=== PATIENT | male | born 1940 | race Caucasian/White ===

== ENCOUNTER 2024-04-09 15:30 | Outpatient (RCR) | payer MEDICARE, SELFPAY ==
[2024-03-31 09:13] VITALS: BP 165/83; PULSE 68; RESP 18; TEMP 36.3; BMI 25.1
--- NOTE | 2024-03-31 10:52 | HP.PCM_ITS ---
HPI - General General Date of Admission: 03/31/24 HPI Narrative ELSA ALANIZ, is a 84 M who presents for bilateral chronic leg swelling, left greater than right. Patient referred by Dr. Alan Coleman. Patient being treated by Dr. Coleman with dry sterile dressing changes Jalil bandages and Keflex left lower extremity cellulitis. Patient presents today with chronic ulcerations to bilateral lower extremity. Patient reports he sleeps sitting up in a recliner. Patient denies any constitutional symptoms. Patient notes pain with manipulation of the wound sites. Patient denies any chest pain calf pain shortness of breath at current. Patient has no other complaints. Patient has multiple complex medical comorbidities including but not limited to heart disease. [facility] Home Medications ?Medication ?Instructions ?Recorded ?Last Taken ?Type aspirin 81 mg capsule 81 mg PO DAILY 03/31/24 Unknown History furosemide 20 mg tablet 20 mg PO DAILY 03/31/24 Unknown History furosemide 40 mg tablet 40 mg PO DAILY 03/31/24 Unknown History hydralazine 50 mg tablet 50 mg PO Q8 03/31/24 Unknown History magnesium oxide 400 mg (241.3 mg 400 mg PO QWEEK 03/31/24 Unknown History magnesium) tablet metoprolol tartrate 25 mg tablet 25 mg PO Q12.TCU 03/31/24 Unknown History mirtazapine 7.5 mg tablet 7.5 mg PO QHS 03/31/24 Unknown History pantoprazole 40 mg tablet,delayed 40 mg PO DAILY 03/31/24 Unknown History release simvastatin 20 mg tablet 20 mg PO QHS 03/31/24 Unknown History Allergy/AdvReac Type Severity Reaction Status Date / Time No Known Allergies Allergy Verified 03/31/24 10:07 Social History Smoking Status: Light Smoker (<10/day) ROS Constitutional Constitutional: Denies fatigue, fever(s) or weight loss Eyes Eyes: Denies change in eye color, exophthalmos or nystagmus ENT HEENT: Denies dysphagia, ear discharge or mouth pain Cardiovascular Cardiovascular: Denies bluish discoloration of hand/feet, dyspnea at rest or dyspnea on exertion Respiratory/Chest Respiratory/Chest: Denies difficulty clearing secretions, nail bed cyanosis or shortness of breath at rest Gastrointestinal Gastrointestinal: Denies chewing difficulty, coffee ground emesis or hematochezia Vital Signs Vital Signs Vital Signs: 03/31/24 09:13 Temperature 97.3 F L Temperature Source Temporal Pulse Rate 68 Respiratory Rate 18 Blood Pressure 165/83 H Blood Pressure Mean 110 Blood Pressure Source Monitor Blood Pressure Position Sitting Blood Pressure Location Left Forearm Oxygen Delivery Method Room Air Weight Weight: 71.668 kg Body Mass Index (BMI) 25.1 Physical Exam Narrative Vascular: Dorsalis pedis posterior tibial pulses palpable 2 out of 4 to bilateral lower extremity. Atrophic skin changes noted bilaterally. +1 pitting edema right lower extremity. +2 pitting edema left lower extremity. Focal increase in warmth and erythema noted to left lower extremity diffusely. Neurologic: Light touch protective sensation intact bilateral feet. No evidence of clonus or Babinski sign today. Dermatologic: Full-thickness wound to the dorsal right foot, full-thickness wound to the dorsal left foot, full-thickness wound to anterior lateral leg. These wounds demonstrate periwound maceration moderate serous drainage. Left leg wound demonstrates periwound erythema edema and warmth. No other signs of infection deep probing or undermining noted. Musculoskeletal: No pain with calf squeeze bilaterally. Muscular strength full to bilateral lower extremity compartment. No gross musculoskeletal deformity causing wound formation. Assessment & Plan Assessment/Plan (1) Cellulitis of left lower limb: PLAN: Exam performed. Patient on p.o. Keflex. Wounds to bilateral lower extremity were debrided including the right foot, left foot, left lateral leg down to and including level of subcutaneous tissue. All nonviable tissue was removed via excisional debridement. This was performed with a 5 mm millimeter dermal curette. Pre and postdebridement measurements documented nursing notes. Topical anesthesia was used. Patient tolerated procedure well. Hemostasis obtained with light compression. Wound flushed with copious amounts normal sterile saline swab cultures taken. Arterial studies ordered Venous studies ordered Plan for Betadine paint to periwound edges along with silver alginate to the wound sites overlying dry sterile dressing and Jalil wrap's wrap from the base of the toes to the widest portion of the calf. This dressing will change will be performed by the patient's daughter every third day. Will consider advanced wound care products including EpiFix versus additional application of multilayer compression wrap once arterial and venous studies have been obtained. At current I am recommending completion of p.o. antibiotics, will consider changing antibiotics per culture and sensitivity results. Follow-up in 1 week. (2) Non-pressure chronic ulcer of other part of right foot with fat layer exposed: (3) Non-pressure chronic ulcer of other part of left foot with fat layer exposed: (4) Non-pressure chronic ulcer of left calf with fat layer exposed:
--- NOTE | 2024-04-02 09:38 | WC ---
PHOTO 03/31/24 RIGHT DORSAL FOOT(I)
--- NOTE | 2024-04-02 09:44 | WC ---
PHOTO 03/31/24 RIGHT 2ND TOE (I)
--- NOTE | 2024-04-02 09:47 | WC ---
PHOTO 03/31/24 RIGHT POST LE(I)
--- NOTE | 2024-04-02 09:52 | WC ---
PHOTO 03/31/24 LEFT 3RD TOE(I)
--- NOTE | 2024-04-02 09:55 | WC ---
PHOTO 03/31/24 LEFT DORSAL FOOT
--- NOTE | 2024-04-02 09:58 | WC ---
PHOTO 03/31/24 LEFT LATERAL LE
--- NOTE | 2024-04-02 10:01 | WC ---
PHOTO 03/31/24 LEFT POST LE(I)
[2024-04-07 09:07] VITALS: BP 158/60; PULSE 73; RESP 18; TEMP 36.3; BMI 25.1
--- NOTE | 2024-04-07 09:58 | PCM.WC.PN ---
History of Present Illness Date of Service: 04/07/24 Objective Data Objective Data Vital Signs: Vital Signs Temp Pulse Resp BP O2 Del Method 97.3 F L 73 18 158/60 H Room Air 04/07/24 09:07 04/07/24 09:07 04/07/24 09:07 04/07/24 09:07 04/07/24 09:07 Oxygen Delivery Method Room Air Weight: 71.668 kg Body Mass Index (BMI) 25.1 Lab / Micro Data Micro: Microbiology 03/31/24 16:53 Ulcer, Decubitus - Leg, Left Gram Stain - Final 03/31/24 16:53 Ulcer, Decubitus - Leg, Left Wound Culture - Final Pseudomonas aeruginosa Enterococcus faecalis Staphylococcus epidermidis Serratia fonticola 03/31/24 16:53 Ulcer, Decubitus - Leg, Left Anaerobic Culture - Final No anaerobic bacteria isolated. Physical Exam Narrative Vascular: Dorsalis pedis posterior tibial pulses palpable 2 out of 4 to bilateral lower extremity. Atrophic skin changes noted bilaterally. +1 pitting edema right lower extremity. +2 pitting edema left lower extremity. Focal increase in warmth and erythema noted to left lower extremity diffusely. Neurologic: Light touch protective sensation intact bilateral feet. No evidence of clonus or Babinski sign today. Dermatologic: Full-thickness wound to the dorsal right foot, full-thickness wound to the dorsal left foot, full-thickness wound to anterior lateral leg. These wounds demonstrate periwound maceration moderate serous drainage. Left leg wound demonstrates periwound erythema edema and warmth. No other signs of infection deep probing or undermining noted. Musculoskeletal: No pain with calf squeeze bilaterally. Muscular strength full to bilateral lower extremity compartment. No gross musculoskeletal deformity causing wound formation. Debridement Note Debridement Note Post-Debridement Measurements and Additional Note: Post-Debridement Measurements/Treatment - Nurse 1 - General Ulcer Assessment Start: 03/31/24 09:13 Freq: Status: Active Protocol: DOMINGA Activity Type Activity Date Activity User E-sign Co-sign Detail Recorded Client Recorded Date Recorded By Document 03/31/24 09:13 KW [id number] 03/31/24 10:07 KW Document 04/07/24 09:07 KW [id number] 04/07/24 09:34 KW 03/31/24 04/07/24 09:13 09:07 - Today's Visit Information Type of service Initial Visit Follow-up Visit (Physician/GYROSCOPIC INSTRUMENT TESTER ) Arrival Mode Ambulatory,Cane Ambulatory,Cane Accompanied by DAUGHTER sister Patient Identification Verified (Name & Yes Yes ) Height and Weight Height 5 ft 6.5 in Weight 71.668 kg Weight in Pounds 158.0 lbs Weight Measurement Method Estimated by Patient Body Mass Index (BMI) 25.1 25.1 BMI Classification Overweight Overweight BSA - Yudi 1.82 Vital Signs Temperature (97.8 F-99.1 F) 97.3 F L 97.3 F L Temperature Source Temporal Temporal Pulse Rate (60-100) 68 73 Pulse Location Monitor Monitor Respiratory Rate (12-18) 18 18 Respiratory rate source Observation Observation Oxygen Delivery Method Room Air Room Air Blood Pressure (90/60-120/80) 165/83 H 158/60 H Blood Pressure Mean (mm Hg) 110 92 Source Monitor Monitor Position Sitting Semi-Fowlers Blood Pressure Location Left Forearm Left Forearm History Since Last Visit- (Skip if this is Patient's initial visit) Have you changed medications since your No last visit? Any new allergies or adverse reactions No Had a fall/change in ADL's that may No increase risk of falls Signs or symptoms of abuse and/or No neglect since last visit Have you been in the hospital since your No last visit? Has dressing in place as prescribed Yes Has compression in place as prescribed Yes Has offloadiing in place as prescribed N/A Experienced any changes in pain level or No management Left Footwear No Footwear No Footwear Right Footwear No Footwear No Footwear Pain Scale: 0-10 Numeric Is Patient Pain Free? No Yes LT LAT LE -Description Sharp -Intensity 4 -Alleviating Factors/Interventions Medication, Inactivity/ Resting Communication Assessment Preferred language [place] Multi Slide Machine Tender Required No Able to Read Yes Able to Write Yes Communication Tools None Caregiver Communication Skills No Impairment Impairment Right Hearing Abillity Normal Left Hearing Abillity Normal Visual Assistive Devices None Teaching Assessment Preferences Verbal Readiness To Learn Excellent Willingness to Engage in Self Management High Activies Readiness to Engage in Self Management High Activities Anxiety Level Calm Cooperation Cooperative Perception Coherent Interest in Health Problem Asks Questions Education Importance Acknowledges Need Does Patient Smoke tobacco or other Yes substances Smoking Status Light Smoker (< 10/day) Is Patient Diabetic Yes Functional Assessment Recent Decline in Ability to Perform Denies Any Declines Culture/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 Tennis Ball Coverer Hand to contact place of oriental orthodox No WC - Nurse 1 - General Ulcer Measurement Start: 03/31/24 09:13 Freq: Status: Active Protocol: Activity Type Activity Date Activity User E-sign Co-sign Detail Recorded Client Recorded Date Recorded By Document 03/31/24 09:13 KW [id number] 03/31/24 10:07 KW Document 04/07/24 09:07 KW [id number] 04/07/24 09:34 KW 03/31/24 04/07/24 09:13 09:07 Wound Center Nurse 1 #7 LT POST LE -Current Size (cm) - Length 11 -Current Size (cm) - Width 7 -Current Size (cm) - Depth 0.1 -Total Square Cm 77 -Date of Last Picture (Recall this 03/31/24 field) -Exudate Amt Large -Exudate Type Yellow/Green -Wound Margin Distinct, Outline Attached -Granulation Amt Large (67-100%) -Granulation Quality Red -Necrosis Amt Small (1-33%) -Necrotic Tissue Type Adherent Slough -Texture (Ana-wound Skin Appearance) Assessed -Moisture (Ana-wound Skin Appearance) Assessed, Maceration, Weeping -Color (Ana-wound Skin Appearance) Erythema -Temperature (Ana-wound Skin No Abnormality Appearance) (Pt Warm) -Tenderness on Palpation (Ana-wound Yes Skin Appearance) -Ulcer Cleansing Soap and Water -Foul Odor after Cleansing No -Anesthetic Used 4% Lidocaine Solution #4 LT 3RD TOE-MED -Current Size (cm) - Length 0.1 -Current Size (cm) - Width 0.1 -Current Size (cm) - Depth 0.1 -Total Square Cm 0.01 -Date of Last Picture (Recall this 03/31/24 field) -Exudate Amt Small -Exudate Type Serosanguineous -Wound Margin Distinct, Outline Attached -Granulation Amt Large (67-100%) -Granulation Quality [place] -Necrosis Amt Large (67-100%) -Necrotic Tissue Type Adherent Slough -Texture (Ana-wound Skin Appearance) Assessed -Moisture (Ana-wound Skin Appearance) Maceration -Color (Ana-wound Skin Appearance) Assessed -Temperature (Ana-wound Skin No Abnormality Appearance) (Pt Warm) -Tenderness on Palpation (Ana-wound No Skin Appearance) -Ulcer Cleansing Soap and Water -Foul Odor after Cleansing No -Anesthetic Used 4% Lidocaine Solution #3 RT POST LE -Current Size (cm) - Length 2 -Current Size (cm) - Width 8 -Current Size (cm) - Depth 0.1 -Total Square Cm 16 -Date of Last Picture (Recall this 03/31/24 field) -Exudate Amt Large -Exudate Type Yellow/Green -Wound Margin Distinct, Outline Attached -Granulation Amt Large (67-100%) -Granulation Quality Red -Necrosis Amt Small (1-33%) -Necrotic Tissue Type Adherent Slough -Texture (Ana-wound Skin Appearance) Assessed -Moisture (Ana-wound Skin Appearance) Maceration, Weeping -Color (Ana-wound Skin Appearance) Erythema -Temperature (Ana-wound Skin No Abnormality Appearance) (Pt Warm) -Tenderness on Palpation (Ana-wound No Skin Appearance) -Ulcer Cleansing Soap and Water -Foul Odor after Cleansing No -Anesthetic Used 4% Lidocaine Solution #2 RT 2ND TOE -Current Size (cm) - Length 0.6 -Current Size (cm) - Width 1 -Current Size (cm) - Depth 0.1 -Total Square Cm 0.6 -Date of Last Picture (Recall this 03/31/24 field) -Exudate Amt Small -Exudate Type Serosanguineous -Wound Margin Distinct, Outline Attached -Granulation Amt Large (67-100%) -Granulation Quality Red -Necrosis Amt Small (1-33%) -Necrotic Tissue Type Adherent Slough -Texture (Ana-wound Skin Appearance) Assessed -Moisture (Ana-wound Skin Appearance) Maceration -Color (Ana-wound Skin Appearance) Erythema -Temperature (Ana-wound Skin No Abnormality Appearance) (Pt Warm) -Tenderness on Palpation (Ana-wound No Skin Appearance) -Ulcer Cleansing Soap and Water -Anesthetic Used 4% Lidocaine Solution #6 LT LAT LE cluster -Current Size (cm) - Length 21 24.5 -Current Size (cm) - Width 9 24 -Current Size (cm) - Depth 0.1 0.1 -Total Square Cm 189 588.0 -Date of Last Picture (Recall this 03/31/24 field) -Exudate Amt Large Large -Exudate Type Yellow/Green Yellow/Green -Wound Margin Distinct, Distinct, Outline Outline Attached Attached -Granulation Amt Large (67-100%) Large (67-100%) -Granulation Quality Red Red -Necrosis Amt Small (1-33%) Medium (34-66%) -Necrotic Tissue Type Adherent Slough Adherent Slough -Texture (Ana-wound Skin Appearance) Assessed, Assessed Localized Edema -Moisture (Ana-wound Skin Appearance) Maceration, Assessed, Weeping Maceration, Weeping -Color (Ana-wound Skin Appearance) Assessed, Assessed, Erythema Erythema -Temperature (Ana-wound Skin No Abnormality No Abnormality Appearance) (Pt Warm) (Pt Warm) -Tenderness on Palpation (Ana-wound Yes No Skin Appearance) -Ulcer Cleansing Soap and Water Soap and Water -Foul Odor after Cleansing No No -Anesthetic Used 4% Lidocaine 4% Lidocaine Solution Solution #5 LT DORSAL FT -Current Size (cm) - Length 5 -Current Size (cm) - Width 7 -Current Size (cm) - Depth 0.1 -Total Square Cm 35 -Date of Last Picture (Recall this 03/31/24 field) -Exudate Amt Large Large -Exudate Type Yellow/Green Yellow/Green -Wound Margin Distinct, Distinct, Outline Outline Attached Attached -Granulation Amt Large (67-100%) Large (67-100%) -Granulation Quality Red Red -Necrosis Amt Small (1-33%) Small (1-33%) -Necrotic Tissue Type Adherent Slough Adherent Slough -Texture (Ana-wound Skin Appearance) Assessed, Assessed Localized Edema -Moisture (Ana-wound Skin Appearance) Maceration Assessed, Maceration, Weeping -Color (Ana-wound Skin Appearance) Assessed, Assessed, Erythema Erythema -Temperature (Ana-wound Skin No Abnormality No Abnormality Appearance) (Pt Warm) (Pt Warm) -Tenderness on Palpation (Ana-wound No No Skin Appearance) -Ulcer Cleansing Soap and Water Soap and Water -Foul Odor after Cleansing No No -Anesthetic Used 4% Lidocaine 4% Lidocaine Solution Solution #1 RT DORSAL FT -Current Size (cm) - Length 5 5 -Current Size (cm) - Width 4.3 5 -Current Size (cm) - Depth 0.1 0.1 -Total Square Cm 21.5 25 -Date of Last Picture (Recall this 03/31/24 field) -Exudate Amt Large Large -Exudate Type Yellow/Green Serosanguineous -Wound Margin Distinct, Distinct, Outline Outline Attached Attached -Granulation Amt Large (67-100%) Large (67-100%) -Granulation Quality Red Red -Necrosis Amt Small (1-33%) Small (1-33%) -Necrotic Tissue Type Adherent Slough Adherent Slough -Texture (Ana-wound Skin Appearance) Localized Edema Assessed -Moisture (Ana-wound Skin Appearance) Maceration,Dry/ Assessed, Scaly Maceration, Weeping -Color (Ana-wound Skin Appearance) Erythema Assessed, Erythema -Temperature (Ana-wound Skin No Abnormality No Abnormality Appearance) (Pt Warm) (Pt Warm) -Tenderness on Palpation (Ana-wound No No Skin Appearance) -Ulcer Cleansing Soap and Water Soap and Water -Foul Odor after Cleansing No No -Anesthetic Used 4% Lidocaine 4% Lidocaine Solution Solution Right Calf (cm) 34 Right Ankle (cm) 22.5 Left Calf (cm) 36 Left Ankle (cm) 23 WC - Nurse 2 - General Ulcer CM Notes Start: 03/31/24 09:13 Freq: Status: Active Protocol: Activity Type Activity Date Activity User E-sign Co-sign Detail Recorded Client Recorded Date Recorded By Document 03/31/24 10:41 [id number] 03/31/24 10:45 Document 04/07/24 09:48 [id number] 04/07/24 09:55 03/31/24 04/07/24 10:41 09:48 Wound Center Nurse 2 #6 LT LAT LE cluster -Time 10:41 09:49 -Correct Patient Yes Yes -Correct Side, Site, Position Yes Yes -Correct Procedure Yes Yes -Procedure Performed Yes Yes -Type of Procedure Debridement Debridement -Clinical Debridement Subcutaneous Subcutaneous -Tissue Removed Subcutaneous Subcutaneous -Post Debridement (cm) - Length 18 18 -Post Debridement (cm) - Width 6.5 6.6 -Post Debridement (cm) - Depth 0.1 0.1 -Total Square (Post) (cm) 117.0 118.8 -Area of Debridement (cm) - Length 18.0 18 -Area of Debridement (cm) - Width 6.5 6.6 -Total Square (Area) (cm) 117.00 118.8 -Tunneling No No -Undermining/Tunneling No No -Circular Undermining No No -Wound/Ulcer Outcome Not Healed Not Healed -Ulcer Cleansing Rinsed/ Wound Cleanser Irrigated with Saline -Foul Odor after Cleansing No No -Bioengineered Tissue No No -Bleeding Controlled with Pressure Pressure -Treatment Response Procedure Procedure Tolerated Well Tolerated Well -Offloading No No -Debridement - Subq, 1st 20sq cm No No #5 LT DORSAL FT -Time 10:42 09:51 -Correct Patient Yes Yes -Correct Side, Site, Position Yes Yes -Correct Procedure Yes Yes -Procedure Performed Yes Yes -Type of Procedure Debridement Debridement -Clinical Debridement Subcutaneous Subcutaneous -Tissue Removed Subcutaneous Subcutaneous -Post Debridement (cm) - Length 4.0 4 -Post Debridement (cm) - Width 3.5 3.6 -Post Debridement (cm) - Depth 0.1 0.1 -Total Square (Post) (cm) 14.00 14.4 -Area of Debridement (cm) - Length 4.0 4 -Area of Debridement (cm) - Width 3.5 3.6 -Total Square (Area) (cm) 14.00 14.4 -Tunneling No No -Undermining/Tunneling No No -Circular Undermining No No -Wound/Ulcer Outcome Not Healed Not Healed -Ulcer Cleansing Rinsed/ Rinsed/ Irrigated with Irrigated with Saline Saline -Foul Odor after Cleansing No No -Bioengineered Tissue No No -Bleeding Controlled with Pressure Pressure -Treatment Response Procedure Procedure Tolerated Well Tolerated Well -Offloading No No -Debridement - Subq, 1st 20sq cm Yes No -Debridement, SubQ, ea addt'l 20sq cm 7 or part thereof #1 RT DORSAL FT -Time 10:43 09:52 -Correct Patient Yes Yes -Correct Side, Site, Position Yes Yes -Correct Procedure Yes Yes -Procedure Performed Yes Yes -Type of Procedure Debridement Debridement -Clinical Debridement Subcutaneous Subcutaneous -Tissue Removed Subcutaneous Subcutaneous -Post Debridement (cm) - Length 5.5 5.5 -Post Debridement (cm) - Width 3.5 3.6 -Post Debridement (cm) - Depth 0.1 0.1 -Total Square (Post) (cm) 19.25 19.80 -Area of Debridement (cm) - Length 5.5 5.5 -Area of Debridement (cm) - Width 3.5 3.6 -Total Square (Area) (cm) 19.25 19.80 -Tunneling No No -Undermining/Tunneling No No -Circular Undermining No No -Wound/Ulcer Outcome Not Healed Not Healed -Ulcer Cleansing Rinsed/ Irrigated with Saline -Foul Odor after Cleansing No No -Bioengineered Tissue No No -Bleeding Controlled with Pressure Pressure -Treatment Response Procedure Procedure Tolerated Well Tolerated Well -Offloading No No -Debridement - Subq, 1st 20sq cm No Yes -Debridement, SubQ, ea addt'l 20sq cm 7 or part thereof Pain Scale: 0-10 Numeric Is Patient Pain Free? Yes Yes - Nurse 3 - General Ulcer D/C NN Start: 03/31/24 09:13 Freq: Status: Active Protocol: Activity Type Activity Date Activity User E-sign Co-sign Detail Recorded Client Recorded Date Recorded By Document 03/31/24 10:58 [id number] 03/31/24 11:01 03/31/24 10:58 Wound Care Center Nurse 3 #6 LT LAT LE cluster -Ulcer Cleansing betadine to edges of wounds -Primary Dressing Applied Silvercel -Other Dressing ABD -Primary Dressing Covered/Secured with Dry Gauze,Dry Gauze & Roll Gauze -Silvercel 3 #5 LT DORSAL FT -Ulcer Cleansing betadine -Other Dressing silvercel -Primary Dressing Covered/Secured with Dry Gauze,Dry Gauze & Roll Gauze,Secured with Tape -Other Covering ABD #1 RT DORSAL FT -Ulcer Cleansing betadine -Other Dressing silvercel -Primary Dressing Covered/Secured with Dry Gauze,Dry Gauze & Roll Gauze bilat LE -Other lee Treatment Response Procedure Tolerated Well Pain Scale: 0-10 Numeric Is Patient Pain Free? Yes - Visit Discharge Discharge Condition Stable Ambulatory Status Wheelchair Transportation Private Auto Medication Reconcilliation completed & No provided to patient/care provider Clinical Summary of Care Provided Yes Assessment/Plan Assessment/Plan (1) Cellulitis of left lower limb: CODE(S): L03.116 - Cellulitis of left lower limb PLAN: Exam performed. Wound cultures reviewed with patient. Patient has positive cultures for Pseudomonas aeruginosa, Enterococcus faecalis, Serratia species, Staph epidermidis. Rx for Augmentin and levofloxacin ordered. Wounds to bilateral lower extremity were debrided including the right foot, left foot, left lateral leg down to and including level of subcutaneous tissue. All nonviable tissue was removed via excisional debridement. This was performed with a misonix hydrodebrider. Pre and postdebridement measurements documented nursing notes. Topical anesthesia was used. Patient tolerated procedure well. Hemostasis obtained with light compression. Wound flushed with copious amounts normal sterile saline swab cultures taken. Arterial studies ordered -awaiting study results Venous studies ordered -awaiting study result Plan for Betadine paint to wounds diffusely to bilateral legs with overlying silver alginate and Adaptic followed by 3M compression wraps with a nursing dressing change on prior to follow-up visit next week. Will consider advanced wound care products including EpiFix versus additional application of multilayer compression wrap once arterial and venous studies have been obtained. At current I am recommending completion of p.o. antibiotics, will consider changing antibiotics per culture and sensitivity results. Follow-up in 1 week. (2) Non-pressure chronic ulcer of other part of right foot with fat layer exposed: CODE(S): L97.512 - Non-pressure chronic ulcer of other part of right foot with fat layer exposed (3) Non-pressure chronic ulcer of other part of left foot with fat layer exposed: CODE(S): L97.522 - Non-pressure chronic ulcer of other part of left foot with fat layer exposed (4) Non-pressure chronic ulcer of left calf with fat layer exposed: CODE(S): L97.222 - Non-pressure chronic ulcer of left calf with fat layer exposed
--- NOTE | 2024-04-09 13:04 | VDLE_ITS ---
Version 2 Reason For Study: Bilateral leg edema RIGHT LEFT CFV is compressible, spontaneous, phasic, CFV is compressible, spontaneous, phasic, competent and demonstrates normal competent, and demonstrates normal augmentation. augmentation. FV is compressible, spontaneous, phasic, FV is compressible, spontaneous, phasic, competent and demonstrates normal competent and demonstrates normal augmentation. augmentation. POP V is compressible, spontaneous, phasic, POP V is compressible, spontaneous, phasic, competent and demonstrates normal competent and demonstrates normal augmentation. augmentation. T/P Trunk is compressible. T/P Trunk is compressible. PTV is compressible. PTV is compressible. RT PerV is compressible. LT PerV is compressible. SFJ is competent and measures 0.53 cm. SFJ is competent and measures 0.58 cm. GSV previously harvest above knee. GSV proximal thigh measures 0.55 x 0.57 cm. GSV prox calf measures 0.18 x 0.21 cm. GSV above knee is competent. GSV below knee is INCOMPETENT for greater GSV at knee measures 0.51 x 0.52 cm. than 0.5 seconds. GSV below knee is INCOMPETENT for greater ASV proximal calf is INCOMPETENT for greater than 0.5 seconds. than 0.5 seconds and measures 0.16 x 0.17 cm. ASV at knee is INCOMPETENT for greater than SSV proximal calf is competent and measures 0.5 seconds and measures 0.48 x 0.55 cm. 0.30 x 0.35 cm. SSV proximal calf is competent and measures Procedure 0.13 x 0.14 cm. This is a venous duplex using B-mode, color flow and spectral Doppler. Exam performed in department. Patient was scanned in reverse Trendelenburg position during reflux assessment. A preliminary report was called and/or faxed to [facility]. Calf veins not well visualized at distal calf due to bandages and wounds. VL/Venous Duplex US - Roney Extrem Interpretation Summary Deep veins of the lower extremities are bilaterally patent and compressible seg mentally. There is no evidence of deep vein thrombosis on either side. Valvular competence appears in tact within the proximal deep venous systems bilaterally. Sapheno-femoral junctions are bilater ally competent . The right great saphenous vein has been previously harvested above the knee. The ri ght great saphenous vein appears incompetent below the knee. The left great saphenous vein appears competent above the knee. The left great saphenous vein appears incompetent below the knee. Small s aphenous veins are patent and competent bilaterally. The accessory saphenous vein in the right pro ximal calf is incompetent. The accessory saphenous vein at knee level on the left is incompet ent. Deep veins of the distal calf were not well visualized on either side due to the presence of wounds and bandages. Ordering Physician: Grady Reyez Referring Physician: Alan Coleman Performed By: Donna Conteh RVT
--- NOTE | 2024-04-09 13:04 | ART_ITS ---
Reason For Study: Wound Procedure A bilateral lower extremity continuous wave Doppler with analog waveform analysis,segmental pressures,and ankle brachial indexes without exercise. Left Segmental Pressures Left brachial= 148mmHg. Left posterior tibial artery = 181mmHg. Left dorsalis pedis artery = 179mmHg. Left digit = 82 mmHg. The left dorsalis pedis waveforms are biphasic. The left posterior tibial artery waveforms are biphasic. Right Segmental Pressures Right brachial= 143mmHg. Right posterior tibial artery = 169mmHg. Right dorsalis pedis artery = 161mmHg. Right digit = 101 mmHg. The right dorsalis pedis waveforms are triphasic. The right posterior tibial artery waveforms are biphasic. Indices The right ankle brachial index by the dorsalis pedis is 1.09. The right ankle brachial index by the posterior tibial artery is 1.14. The right digital-brachial index is 0.68. The left ankle brachial index by the dorsalis pedis is 1.21. The left ankle brachial index by the posterior tibial artery is 1.22. The left digital-brachial index is 0.55. VL/Lower Ext Art Exam w/o Exercis Interpretation Summary Biphasic and triphasic Doppler waveforms are noted at ankle level on the right. Biphasic Doppler waveforms are noted at ankle level on the left. Pulse-volume recordings appear satisfactory at all levels bilaterally. Resting ankle-brachial indices are normal bilaterally. Digi sujit-brachial indices are mildly diminished bilaterally. Arterial flow appears normal at ankle level bilaterally. There is evidence of m ild arterial occlusive disease at digital level bilaterally. Ordering Physician: Grady Reyez Referring Physician: Alan Coleman Performed By: Donna Conteh RVT
[2024-04-09 15:46] VITALS: BP 150/90; PULSE 91; RESP 18; TEMP 36; BMI 25.1
== END 2024-04-11 23:59 | disposition home or self-care (01) ==
LOC: WC 15:30
PROVIDERS: PCP Family Medicine; Referring Provider Family Medicine; Visit Provider Podiatrist
DX: L03.116 Cellulitis of left lower limb (principal); L97.512 Non-pressure chronic ulcer of other part of right foot with fat layer exposed; L97.522 Non-pressure chronic ulcer of other part of left foot with fat layer exposed; L97.222 Non-pressure chronic ulcer of left calf with fat layer exposed; F17.200 Nicotine dependence, unspecified, uncomplicated; Z79.82 Long term (current) use of aspirin
CPT/HCPCS: 11042; 11045; 29581; 87070; 87075; 87077; 87186; 87205; 93923; 93970; 99204; G0463

== ENCOUNTER 2024-05-05 08:45 | Outpatient (RCR) | payer MEDICARE, SELFPAY ==
[2024-04-12 00:34] VITALS: BP 150/90; PULSE 91; RESP 18; TEMP 36; BMI 25.1
[2024-04-14 09:05] VITALS: BP 163/66; PULSE 70; RESP 18; TEMP 36.8; BMI 25.1
[2024-04-21 09:06] VITALS: BP 158/66; PULSE 70; RESP 18; TEMP 36.9; BMI 25.1
[2024-04-23 11:29] VITALS: BP 177/77; PULSE 68; RESP 16; TEMP 36.4; BMI 25.1
[2024-04-28 09:53] VITALS: BP 183/65; PULSE 68; RESP 18; TEMP 36.6; BMI 25.1
[2024-05-01 11:37] VITALS: BMI 25.1
[2024-05-05 08:50] VITALS: BP 159/68; PULSE 67; RESP 20; TEMP 37; BMI 25.1
== END 2024-05-11 23:59 | disposition home or self-care (01) ==
LOC: WC 08:45
PROVIDERS: PCP Family Medicine; Referring Provider Family Medicine; Visit Provider Podiatrist
DX: L03.116 Cellulitis of left lower limb (principal); L97.512 Non-pressure chronic ulcer of other part of right foot with fat layer exposed; L97.522 Non-pressure chronic ulcer of other part of left foot with fat layer exposed; L97.222 Non-pressure chronic ulcer of left calf with fat layer exposed
CPT/HCPCS: 11042; 11045; 29580; 29581; 99212; 99214; G0463

== ENCOUNTER → 2024-05-21 | Outpatient (CLI) | payer MEDICARE, SELFPAY | END | disposition home or self-care (01) | LOC: LABSPEC 15:05 | PROVIDERS: PCP Family Medicine; Visit Provider Podiatrist | DX: Z00.00 Encounter for general adult medical examination without abnormal findings (principal) ==

== ENCOUNTER 2024-06-09 09:45 | Outpatient (RCR) | payer MEDICARE, SELFPAY ==
[2024-05-12 00:39] VITALS: BP 150/90; PULSE 91; RESP 18; TEMP 36; BMI 25.1
[2024-05-12 09:55] VITALS: BP 145/77; PULSE 60; RESP 18; TEMP 36.3; BMI 25.1
--- NOTE | 2024-05-12 10:54 | PCM.WC.PN ---
History of Present Illness Date of Service: 05/05/24 Progress of Wound: Patient presents follow-up bilateral leg wounds. Patient notes significant improvement. Denies any chest pain calf pain shortness of breath. Patient compliant with treatment. We are having issues with requiring home health care. Objective Data Objective Data Vital Signs: Vital Signs Temp Pulse Resp BP 97.3 F L 60 18 145/77 H 05/12/24 09:55 05/12/24 09:55 05/12/24 09:55 05/12/24 09:55 Weight: 71.668 kg Body Mass Index (BMI) 25.1 Physical Exam Narrative Vascular: Dorsalis pedis posterior tibial pulses palpable 2 out of 4 to bilateral lower extremity. Atrophic skin changes noted bilaterally. +1 pitting edema right lower extremity. +2 pitting edema left lower extremity. Focal increase in warmth and erythema noted to left lower extremity diffusely. Neurologic: Light touch protective sensation intact bilateral feet. No evidence of clonus or Babinski sign today. Dermatologic: Full-thickness wound to the dorsal right foot, full-thickness wound to the dorsal left foot, full-thickness wound to anterior lateral leg. These wounds demonstrate improved periwound maceration moderate serous drainage. Left leg wound demonstrates improved periwound erythema edema and warmth. No other signs of infection deep probing or undermining noted. Musculoskeletal: No pain with calf squeeze bilaterally. Muscular strength full to bilateral lower extremity compartment. No gross musculoskeletal deformity causing wound formation. 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 ) Arrival Mode Ambulatory,Cane Transfer Assistance Manual Patient Identification Verified (Name & Yes ) Patient Requires Transmission-Based No Precautions Height and Weight Body Mass Index (BMI) 25.1 BMI Classification Overweight Vital Signs Temperature (97.8 F-99.1 F) 97.3 F L Temperature Source Temporal Pulse Rate (60-100) 60 Pulse Location Monitor Respiratory Rate (12-18) 18 Respiratory rate source Observation Blood Pressure (90/60-120/80) 145/77 H Blood Pressure Mean (mm Hg) 99 Source Monitor Position Semi-Fowlers Blood Pressure Location Left Arm History Since Last Visit- (Skip if this is Patient's initial visit) Have you changed medications since your Yes last visit? Any new allergies or adverse reactions No Had a fall/change in ADL's that may No increase risk of falls Signs or symptoms of abuse and/or No neglect since last visit Have you been in the hospital since your No last visit? Has dressing in place as prescribed Yes Has compression in place as prescribed Yes Has offloadiing in place as prescribed No Experienced any changes in pain level or No management Pain Scale: 0-10 Numeric Is Patient Pain Free? Yes WC - Nurse 1 - General Ulcer Measurement Start: 05/12/24 09:55 Freq: Status: Active Protocol: Activity Type Activity Date Activity User E-sign Co-sign Detail Recorded Client Recorded Date Recorded By Document 05/12/24 09:55 RB [id number] 05/12/24 10:21 RB 05/12/24 09:55 Wound Center Nurse 1 #6 LT leg posterior -Combined with other wound No -Current Size (cm) - Length 15 -Current Size (cm) - Width 19 -Current Size (cm) - Depth 0.1 -Total Square Cm 285 -Photo Taken Yes -Tunneling No -Undermining/Tunneling No -Circular Undermining No -Exudate Amt Large -Exudate Type Serosanguineous -Wound Margin Distinct, Outline Attached -Granulation Amt Large (67-100%) -Granulation Quality [place],Red -Slough/Fibrin Yes -Necrosis Amt Small (1-33%) -Necrotic Tissue Type Adherent Slough -Structure Exposed N/A -Texture (Ana-wound Skin Appearance) Assessed -Moisture (Ana-wound Skin Appearance) Assessed, Maceration -Color (Ana-wound Skin Appearance) Assessed -Temperature (Ana-wound Skin No Abnormality Appearance) (Pt Warm) -Tenderness on Palpation (Ana-wound No Skin Appearance) -Ulcer Cleansing Wound Cleanser -Foul Odor after Cleansing No #5 LT DORSAL FT -Combined with other wound No -Current Size (cm) - Length 0.1 -Current Size (cm) - Width 0.1 -Current Size (cm) - Depth 0.1 -Total Square Cm 0.01 -Photo Taken Yes -Tunneling No -Undermining/Tunneling No -Circular Undermining No -Exudate Amt Large -Exudate Type Yellow/Green -Wound Margin Distinct, Outline Attached -Granulation Amt Large (67-100%) -Granulation Quality [place],Red -Slough/Fibrin Yes -Necrosis Amt Medium (34-66%) -Necrotic Tissue Type Adherent Slough -Structure Exposed N/A -Texture (Ana-wound Skin Appearance) Assessed -Moisture (Ana-wound Skin Appearance) Maceration -Color (Ana-wound Skin Appearance) Assessed -Temperature (Ana-wound Skin No Abnormality Appearance) (Pt Warm) -Tenderness on Palpation (Ana-wound No Skin Appearance) -Ulcer Cleansing Wound Cleanser -Foul Odor after Cleansing Yes #3 RT POST LE -Combined with other wound No -Current Size (cm) - Length 0.1 -Current Size (cm) - Width 0.1 -Current Size (cm) - Depth 0.1 -Total Square Cm 0.01 -Photo Taken Yes -Tunneling No -Undermining/Tunneling No -Circular Undermining No -Exudate Amt Large -Exudate Type Serosanguineous -Wound Margin Distinct, Outline Attached -Granulation Amt Medium (34-66%) -Granulation Quality [place] -Slough/Fibrin Yes -Necrosis Amt Medium (34-66%) -Necrotic Tissue Type Adherent Slough -Structure Exposed N/A -Texture (Ana-wound Skin Appearance) Assessed -Moisture (Ana-wound Skin Appearance) Assessed -Color (Ana-wound Skin Appearance) Assessed -Temperature (Ana-wound Skin No Abnormality Appearance) (Pt Warm) -Tenderness on Palpation (Ana-wound No Skin Appearance) -Ulcer Cleansing Wound Cleanser -Foul Odor after Cleansing No #1 RT DORSAL FT -Combined with other wound No -Current Size (cm) - Length 0.1 -Current Size (cm) - Width 0.1 -Current Size (cm) - Depth 0.1 -Total Square Cm 0.01 -Tunneling No -Undermining/Tunneling No -Circular Undermining No -Exudate Amt Large -Exudate Type Serosanguineous -Wound Margin Distinct, Outline Attached -Granulation Amt Medium (34-66%) -Granulation Quality [place] -Slough/Fibrin Yes -Necrosis Amt Medium (34-66%) -Necrotic Tissue Type Adherent Slough -Structure Exposed N/A -Texture (Ana-wound Skin Appearance) Assessed -Moisture (Ana-wound Skin Appearance) Assessed -Color (Ana-wound Skin Appearance) Assessed -Temperature (Ana-wound Skin No Abnormality Appearance) (Pt Warm) -Tenderness on Palpation (Ana-wound No Skin Appearance) -Ulcer Cleansing Wound Cleanser -Foul Odor after Cleansing No Lower Limb Edema Present Yes Right Calf (cm) 33 Right Ankle (cm) 22 Left Calf (cm) 34 Left Ankle (cm) 23 WC - Nurse 2 - General Ulcer CM Notes Start: 05/12/24 09:55 Freq: Status: Active Protocol: Activity Type Activity Date Activity User E-sign Co-sign Detail Recorded Client Recorded Date Recorded By Document 05/12/24 10:19 ESTHER [id number] 05/12/24 10:20 ESTHER 05/12/24 10:19 Wound Center Nurse 2 #6 LT leg posterior -Correct Patient No -Correct Side, Site, Position No -Correct Procedure No -Procedure Performed No -Wound/Ulcer Outcome Not Healed #5 LT DORSAL FT -Correct Patient No -Correct Side, Site, Position No -Correct Procedure No -Procedure Performed No -Wound/Ulcer Outcome Not Healed #3 RT POST LE -Correct Patient No -Correct Side, Site, Position No -Correct Procedure No -Procedure Performed No -Wound/Ulcer Outcome Not Healed -Treatment Response Procedure Tolerated Well #1 RT DORSAL FT -Correct Patient No -Correct Side, Site, Position No -Correct Procedure No -Procedure Performed No -Wound/Ulcer Outcome Not Healed Pain Scale: 0-10 Numeric Is Patient Pain Free? Yes - Nurse 3 - General Ulcer D/C NN Start: 05/12/24 09:55 Freq: Status: Active Protocol: Activity Type Activity Date Activity User E-sign Co-sign Detail Recorded Client Recorded Date Recorded By Document 05/12/24 10:52 RB [id number] 05/12/24 10:54 RB 05/12/24 10:52 Wound Care Center Nurse 3 #6 LT leg posterior -Ulcer Cleansing Wound Cleanser -Primary Dressing Applied Optilok 8x12, [place] -Optilok 8x12 1 -[place] 2 #5 LT DORSAL FT -Ulcer Cleansing Wound Cleanser -Primary Dressing Applied Optilok 6.5x10, Silvercel -Optilok 6.5x10 1 -[place] 1 Right -Tubular Bandage Double Layer -Size of Tubigrip Used Size D -Size D ($) 2 Left -Multi-Layered Wrap Application Multi-Layer Comp - Left ($) Treatment Response Procedure Tolerated Well Pain Scale: 0-10 Numeric Is Patient Pain Free? Yes WC - Visit Discharge Discharge Condition Stable Ambulatory Status Ambulatory,Cane Transportation Private Auto Medication Reconcilliation completed & No provided to patient/care provider Clinical Summary of Care Provided Yes Assessment/Plan Assessment/Plan (1) Cellulitis of left lower limb: CODE(S): L03.116 - Cellulitis of left lower limb PLAN: Exam performed. Cellulitis resolved. Significant improvement wounds to bilateral lower extremity. Continue Betadine dry sterile gauze to left interspaces 1 through 4. Right foot wounds healed. Will apply double Tubigrip right lower extremity. Plan for silver alginate dry sterile dressing and 3M compression wrap left lower extremity. No debridement performed today. Refer to vascular surgery for some venous incompetence noted on venous study. Patient additionally has some right artery mild arterial occlusive disease which was reviewed with patient. Continue compression exercise and elevation for edema management. Follow-up in 1 week. (2) Non-pressure chronic ulcer of other part of right foot with fat layer exposed: CODE(S): L97.512 - Non-pressure chronic ulcer of other part of right foot with fat layer exposed (3) Non-pressure chronic ulcer of other part of left foot with fat layer exposed: CODE(S): L97.522 - Non-pressure chronic ulcer of other part of left foot with fat layer exposed (4) Non-pressure chronic ulcer of left calf with fat layer exposed: CODE(S): L97.222 - Non-pressure chronic ulcer of left calf with fat layer exposed
--- NOTE | 2024-05-13 11:47 | WC ---
PHOTO LEFT DORSAL FOOT 05/12/24
--- NOTE | 2024-05-13 11:48 | WC ---
PHOTO RIGHT DORSAL FOOT 05/12/24
--- NOTE | 2024-05-13 11:49 | WC ---
PHOTO 05/12/24
--- NOTE | 2024-05-13 11:50 | WC ---
PHOTO LLE POST 05/12/24
[2024-05-21 10:08] VITALS: BP 149/77; PULSE 74; RESP 18; TEMP 36.1; BMI 25.1
--- NOTE | 2024-05-21 10:48 | PCM.WC.PN ---
History of Present Illness Date of Service: 05/21/24 Progress of Wound: Patient presents follow-up bilateral leg wounds. Patient notes significant improvement. Denies any chest pain calf pain shortness of breath. Patient compliant with treatment. We are having issues with requiring home health care. Objective Data Objective Data Vital Signs: Vital Signs Temp Pulse Resp BP 97 F L 74 18 149/77 H 05/21/24 10:08 05/21/24 10:08 05/21/24 10:08 05/21/24 10:08 Weight: 71.668 kg Body Mass Index (BMI) 25.1 Physical Exam Narrative Vascular: Dorsalis pedis posterior tibial pulses palpable 2 out of 4 to bilateral lower extremity. Atrophic skin changes noted bilaterally. +1 pitting edema right lower extremity. +2 pitting edema left lower extremity. Focal increase in warmth and erythema noted to left lower extremity diffusely. Neurologic: Light touch protective sensation intact bilateral feet. No evidence of clonus or Babinski sign today. Dermatologic: Healed wounds right foot and leg. Left leg wounds healed. Dorsal left foot ulceration noted full-thickness with moderate serous draining and drainage, malodor, maceration extending into the interdigital spaces. Musculoskeletal: No pain with calf squeeze bilaterally. Muscular strength full to bilateral lower extremity compartment. No gross musculoskeletal deformity causing wound formation. Debridement Note Debridement Note Post-Debridement Measurements and Additional Note: Post-Debridement Measurements/Treatment - Nurse 1 - General Ulcer Assessment Start: 05/12/24 09:55 Freq: Status: Active Protocol: .LOWEXT Activity Type Activity Date Activity User E-sign Co-sign Detail Recorded Client Recorded Date Recorded By Document 05/12/24 09:55 RB [id number] 05/12/24 10:21 RB Document 05/21/24 10:08 RB [id number] 05/21/24 10:33 RB 05/12/24 05/21/24 09:55 10:08 - Today's Visit Information Type of service Follow-up Visit Follow-up Visit (Physician/OFFLINE CUTTER (Physician/OFFLINE CUTTER ) ) Arrival Mode Ambulatory,Cane Ambulatory,Cane Transfer Assistance Manual None Patient Identification Verified (Name & Yes Yes ) Patient Requires Transmission-Based No No Precautions Height and Weight Body Mass Index (BMI) 25.1 25.1 BMI Classification Overweight Overweight Vital Signs Temperature (97.8 F-99.1 F) 97.3 F L 97 F L Temperature Source Temporal Temporal Pulse Rate (60-100) 60 74 Pulse Location Monitor Monitor Respiratory Rate (12-18) 18 18 Respiratory rate source Observation Observation Blood Pressure (90/60-120/80) 145/77 H 149/77 H Blood Pressure Mean (mm Hg) 99 101 Source Monitor Monitor Position Semi-Fowlers Semi-Fowlers Blood Pressure Location Left Arm Left Arm History Since Last Visit- (Skip if this is Patient's initial visit) Have you changed medications since your Yes No last visit? Any new allergies or adverse reactions No No Had a fall/change in ADL's that may No No increase risk of falls Signs or symptoms of abuse and/or No No neglect since last visit Have you been in the hospital since your No No last visit? Has dressing in place as prescribed Yes Yes Has compression in place as prescribed Yes Yes Has offloadiing in place as prescribed No No Experienced any changes in pain level or No No management Pain Scale: 0-10 Numeric Is Patient Pain Free? Yes Yes WC - Nurse 1 - General Ulcer Measurement Start: 05/12/24 09:55 Freq: Status: Active Protocol: Activity Type Activity Date Activity User E-sign Co-sign Detail Recorded Client Recorded Date Recorded By Document 05/12/24 09:55 RB [id number] 05/12/24 10:21 RB Document 05/21/24 10:08 RB [id number] 05/21/24 10:33 RB 05/12/24 05/21/24 09:55 10:08 Wound Center Nurse 1 #6 LT leg posterior -Combined with other wound No No -Current Size (cm) - Length 15 0.1 -Current Size (cm) - Width 19 0.1 -Current Size (cm) - Depth 0.1 0.1 -Total Square Cm 285 0.01 -Photo Taken Yes Yes -Tunneling No No -Undermining/Tunneling No No -Circular Undermining No No -Exudate Amt Large Large -Exudate Type Serosanguineous Serosanguineous -Wound Margin Distinct, Distinct, Outline Outline Attached Attached -Granulation Amt Large (67-100%) Large (67-100%) -Granulation Quality [place],Red [place],Red -Slough/Fibrin Yes Yes -Necrosis Amt Small (1-33%) Small (1-33%) -Necrotic Tissue Type Adherent Slough Adherent Slough -Structure Exposed N/A N/A -Texture (Ana-wound Skin Appearance) Assessed Assessed -Moisture (Ana-wound Skin Appearance) Assessed, Weeping,Dry/ Maceration Scaly -Color (Ana-wound Skin Appearance) Assessed Assessed -Temperature (Ana-wound Skin No Abnormality No Abnormality Appearance) (Pt Warm) (Pt Warm) -Tenderness on Palpation (Ana-wound No No Skin Appearance) -Ulcer Cleansing Wound Cleanser Wound Cleanser -Foul Odor after Cleansing No No -Anesthetic Used 5% Lidocaine Gel #5 LT DORSAL FT -Combined with other wound No No -Current Size (cm) - Length 0.1 10 -Current Size (cm) - Width 0.1 12 -Current Size (cm) - Depth 0.1 0.1 -Total Square Cm 0.01 120 -Photo Taken Yes Yes -Tunneling No No -Undermining/Tunneling No No -Circular Undermining No No -Exudate Amt Large Large -Exudate Type Yellow/Green Serosanguineous -Wound Margin Distinct, Distinct, Outline Outline Attached Attached -Granulation Amt Large (67-100%) Large (67-100%) -Granulation Quality [place],Red [place],Red -Slough/Fibrin Yes Yes -Necrosis Amt Medium (34-66%) Medium (34-66%) -Necrotic Tissue Type Adherent Slough Adherent Slough -Structure Exposed N/A N/A -Texture (Ana-wound Skin Appearance) Assessed Assessed -Moisture (Ana-wound Skin Appearance) Maceration Weeping,Dry/ Scaly -Color (Ana-wound Skin Appearance) Assessed Erythema -Temperature (Ana-wound Skin No Abnormality No Abnormality Appearance) (Pt Warm) (Pt Warm) -Tenderness on Palpation (Ana-wound No No Skin Appearance) -Ulcer Cleansing Wound Cleanser Wound Cleanser -Foul Odor after Cleansing Yes No -Anesthetic Used 5% Lidocaine Gel #3 RT POST LE -Combined with other wound No No -Current Size (cm) - Length 0.1 0 -Current Size (cm) - Width 0.1 0 -Current Size (cm) - Depth 0.1 0 -Total Square Cm 0.01 0 -Photo Taken Yes Yes -Epithelialization Large 67-100% -Tunneling No -Undermining/Tunneling No -Circular Undermining No -Exudate Amt Large -Exudate Type Serosanguineous -Wound Margin Distinct, Outline Attached -Granulation Amt Medium (34-66%) -Granulation Quality [place] -Slough/Fibrin Yes -Necrosis Amt Medium (34-66%) -Necrotic Tissue Type Adherent Slough -Structure Exposed N/A -Texture (Ana-wound Skin Appearance) Assessed -Moisture (Ana-wound Skin Appearance) Assessed -Color (Ana-wound Skin Appearance) Assessed -Temperature (Ana-wound Skin No Abnormality Appearance) (Pt Warm) -Tenderness on Palpation (Ana-wound No Skin Appearance) -Ulcer Cleansing Wound Cleanser -Foul Odor after Cleansing No #1 RT DORSAL FT -Combined with other wound No No -Current Size (cm) - Length 0.1 0 -Current Size (cm) - Width 0.1 0 -Current Size (cm) - Depth 0.1 0 -Total Square Cm 0.01 0 -Photo Taken Yes -Epithelialization Large 67-100% -Tunneling No -Undermining/Tunneling No -Circular Undermining No -Exudate Amt Large -Exudate Type Serosanguineous -Wound Margin Distinct, Outline Attached -Granulation Amt Medium (34-66%) -Granulation Quality [place] -Slough/Fibrin Yes -Necrosis Amt Medium (34-66%) -Necrotic Tissue Type Adherent Slough -Structure Exposed N/A -Texture (Ana-wound Skin Appearance) Assessed -Moisture (Ana-wound Skin Appearance) Assessed -Color (Ana-wound Skin Appearance) Assessed -Temperature (Ana-wound Skin No Abnormality Appearance) (Pt Warm) -Tenderness on Palpation (Ana-wound No Skin Appearance) -Ulcer Cleansing Wound Cleanser -Foul Odor after Cleansing No Lower Limb Edema Present Yes Yes Right Calf (cm) 33 32.5 Right Ankle (cm) 22 22.7 Left Calf (cm) 34 32.5 Left Ankle (cm) 23 22.5 WC - Nurse 2 - General Ulcer CM Notes Start: 05/12/24 09:55 Freq: Status: Active Protocol: Activity Type Activity Date Activity User E-sign Co-sign Detail Recorded Client Recorded Date Recorded By Document 05/12/24 10:19 ESTHER [id number] 05/12/24 10:20 ESTHER 05/12/24 10:19 Wound Center Nurse 2 #6 LT leg posterior -Correct Patient No -Correct Side, Site, Position No -Correct Procedure No -Procedure Performed No -Wound/Ulcer Outcome Not Healed #5 LT DORSAL FT -Correct Patient No -Correct Side, Site, Position No -Correct Procedure No -Procedure Performed No -Wound/Ulcer Outcome Not Healed #3 RT POST LE -Correct Patient No -Correct Side, Site, Position No -Correct Procedure No -Procedure Performed No -Wound/Ulcer Outcome Not Healed -Treatment Response Procedure Tolerated Well #1 RT DORSAL FT -Correct Patient No -Correct Side, Site, Position No -Correct Procedure No -Procedure Performed No -Wound/Ulcer Outcome Not Healed Pain Scale: 0-10 Numeric Is Patient Pain Free? Yes - Nurse 3 - General Ulcer D/C NN Start: 05/12/24 09:55 Freq: Status: Active Protocol: Activity Type Activity Date Activity User E-sign Co-sign Detail Recorded Client Recorded Date Recorded By Document 05/12/24 10:52 RB [id number] 05/12/24 10:54 RB 05/12/24 10:52 Wound Care Center Nurse 3 #6 LT leg posterior -Ulcer Cleansing Wound Cleanser -Primary Dressing Applied Optilok 8x12, [place] -Optilok 8x12 1 -[place] 2 #5 LT DORSAL FT -Ulcer Cleansing Wound Cleanser -Primary Dressing Applied Optilok 6.5x10, [place] -Optilok 6.5x10 1 -[place] 1 Right -Tubular Bandage Double Layer -Size of Tubigrip Used Size D -Size D ($) 2 Left -Multi-Layered Wrap Application Multi-Layer Comp - Left ($) Treatment Response Procedure Tolerated Well Pain Scale: 0-10 Numeric Is Patient Pain Free? Yes - Visit Discharge Discharge Condition Stable Ambulatory Status Ambulatory,Cane Transportation Private Auto Medication Reconcilliation completed & No provided to patient/care provider Clinical Summary of Care Provided Yes Assessment/Plan Assessment/Plan (1) Cellulitis of left lower limb: CODE(S): L03.116 - Cellulitis of left lower limb PLAN: Exam performed. Cellulitis recurrent on the left. Wound cultures taken. Rx for Augmentin and ciprofloxacin. No debridement performed today. Plan for daily Betadine gauze to the interspaces dorsal left foot ulceration will be dressed with silver alginate dry sterile dressing and overlying double Tubigrip dressing. Recommend continue elevation left lower extremity. Patient is awaiting vascular evaluation in 1 month. Follow-up weekly. (2) Non-pressure chronic ulcer of other part of right foot with fat layer exposed: CODE(S): L97.512 - Non-pressure chronic ulcer of other part of right foot with fat layer exposed (3) Non-pressure chronic ulcer of other part of left foot with fat layer exposed: CODE(S): L97.522 - Non-pressure chronic ulcer of other part of left foot with fat layer exposed (4) Non-pressure chronic ulcer of left calf with fat layer exposed: CODE(S): L97.222 - Non-pressure chronic ulcer of left calf with fat layer exposed
--- NOTE | 2024-05-22 12:07 | WC ---
PHOTO 05/21/24 LEFT DORSAL FOOT
--- NOTE | 2024-05-22 12:07 | WC ---
PHOTO RIGHT DORSAL FOOT 05/21/24
--- NOTE | 2024-05-22 12:08 | WC ---
PHOTO RIGHT POST LE 05/21/24
--- NOTE | 2024-05-22 12:09 | WC ---
PHOTO 05/21/24 LEFT POST LE
--- NOTE | 2024-05-25 11:16 | WC ---
PHOTO 05/21/24 LEFT DORSAL FOOT
--- NOTE | 2024-05-25 11:17 | WC ---
PHOTO 05/21/24 RIGHT DORSAL FOOT
--- NOTE | 2024-05-25 11:18 | WC ---
PHOTO 05/21/24 RIGHT POST LE
--- NOTE | 2024-05-25 11:19 | WC ---
PHOTO 05/21/24 LEFT POST LE
[2024-05-26 09:44] VITALS: BP 173/59; PULSE 63; RESP 18; TEMP 36.4; BMI 25.1
--- NOTE | 2024-05-26 10:14 | PN.PCM_ITS ---
History of Present Illness Date of Service: 05/26/24 Progress of Wound: Patient presents follow-up bilateral leg wounds. Patient notes significant improvement. Denies any chest pain calf pain shortness of breath. Patient compliant with treatment. We are having issues with requiring home health care. Objective Data Objective Data Vital Signs: Vital Signs Temp Pulse Resp BP O2 Del Method 97.6 F L 63 18 173/59 H Room Air 05/26/24 09:44 05/26/24 09:44 05/26/24 09:44 05/26/24 09:44 05/26/24 09:44 Oxygen Delivery Method Room Air Weight: 71.668 kg Body Mass Index (BMI) 25.1 Lab / Micro Data Micro: Microbiology 05/21/24 10:40 Wound - Left Foot Gram Stain - Final 05/21/24 10:40 Wound - Left Foot Wound Culture - Final Pseudomonas aeruginosa 05/21/24 10:40 Wound - Left Foot Anaerobic Culture - Final No anaerobic bacteria isolated. Physical Exam Narrative Vascular: Dorsalis pedis posterior tibial pulses palpable 2 out of 4 to bilateral lower extremity. Atrophic skin changes noted bilaterally. +1 pitting edema right lower extremity. +2 pitting edema left lower extremity. Focal increase in warmth and erythema noted to left lower extremity diffusely. Neurologic: Light touch protective sensation intact bilateral feet. No evidence of clonus or Babinski sign today. Dermatologic: Healed wounds right foot and leg. Left leg wounds healed. Dorsal left foot ulceration noted full-thickness with moderate serous draining and drainage, malodor, maceration extending into the interdigital spaces - noted to be improved today. Musculoskeletal: No pain with calf squeeze bilaterally. Muscular strength full to bilateral lower extremity compartment. No gross musculoskeletal deformity causing wound formation. Debridement Note Debridement Note Post-Debridement Measurements and Additional Note: Post-Debridement Measurements/Treatment BC - Nurse 1 - General Ulcer Assessment Start: 05/12/24 09:55 Freq: Status: Active Protocol: DOMINGA Activity Type Activity Date Activity User E-sign Co-sign Detail Recorded Client Recorded Date Recorded By Document 05/12/24 09:55 RB [id number] 05/12/24 10:21 RB Document 05/21/24 10:08 RB [id number] 05/21/24 10:33 RB Document 05/26/24 09:44 KW [id number] 05/26/24 09:58 KW 05/12/24 05/21/24 05/26/24 09:55 10:08 09:44 - Today's Visit Information Type of service Follow-up Visit Follow-up Visit Follow-up Visit (Physician/MARKETING PLANNING MANAGER (Physician/MARKETING PLANNING MANAGER (Physician/MARKETING PLANNING MANAGER ) ) ) Arrival Mode Ambulatory,Cane Ambulatory,Cane Ambulatory,Cane Transfer Assistance Manual None Accompanied by caregiver Patient Identification Verified (Name & Yes Yes Yes ) Patient Requires Transmission-Based No No Precautions Height and Weight Body Mass Index (BMI) 25.1 25.1 25.1 BMI Classification Overweight Overweight Overweight Vital Signs Temperature (97.8 F-99.1 F) 97.3 F L 97 F L 97.6 F L Temperature Source Temporal Temporal Temporal Pulse Rate (60-100) 60 74 63 Pulse Location Monitor Monitor Monitor Respiratory Rate (12-18) 18 18 18 Respiratory rate source Observation Observation Observation Oxygen Delivery Method Room Air Blood Pressure (90/60-120/80) 145/77 H 149/77 H 173/59 H Blood Pressure Mean (mm Hg) 99 101 97 Source Monitor Monitor Monitor Position Semi-Fowlers Semi-Fowlers Semi-Fowlers Blood Pressure Location Left Arm Left Arm Left Forearm History Since Last Visit- (Skip if this is Patient's initial visit) Have you changed medications since your Yes No No last visit? Any new allergies or adverse reactions No No No Had a fall/change in ADL's that may No No No increase risk of falls Signs or symptoms of abuse and/or No No No neglect since last visit Have you been in the hospital since your No No No last visit? Has dressing in place as prescribed Yes Yes Yes Has compression in place as prescribed Yes Yes Yes Has offloadiing in place as prescribed No No N/A Experienced any changes in pain level or No No No management Left Footwear Slipper Right Footwear Slipper Pain Scale: 0-10 Numeric Is Patient Pain Free? Yes Yes Yes - Nurse 1 - General Ulcer Measurement Start: 05/12/24 09:55 Freq: Status: Active Protocol: Activity Type Activity Date Activity User E-sign Co-sign Detail Recorded Client Recorded Date Recorded By Document 05/12/24 09:55 RB [id number] 05/12/24 10:21 RB Document 05/21/24 10:08 RB [id number] 10/10/24 10:33 RB Document 05/26/24 09:44 KW [id number] 05/26/24 09:58 KW 05/12/24 05/21/24 05/26/24 09:55 10:08 09:44 Wound Center Nurse 1 #3 RT POST LE -Combined with other wound No No -Current Size (cm) - Length 0.1 0 -Current Size (cm) - Width 0.1 0 -Current Size (cm) - Depth 0.1 0 -Total Square Cm 0.01 0 -Photo Taken Yes Yes -Epithelialization Large 67-100% -Tunneling No -Undermining/Tunneling No -Circular Undermining No -Exudate Amt Large -Exudate Type Serosanguineous -Wound Margin Distinct, Outline Attached -Granulation Amt Medium (34-66%) -Granulation Quality [place] -Slough/Fibrin Yes -Necrosis Amt Medium (34-66%) -Necrotic Tissue Type Adherent Slough -Structure Exposed N/A -Texture (Ana-wound Skin Appearance) Assessed -Moisture (Ana-wound Skin Appearance) Assessed -Color (Ana-wound Skin Appearance) Assessed -Temperature (Ana-wound Skin No Abnormality Appearance) (Pt Warm) -Tenderness on Palpation (Ana-wound No Skin Appearance) -Ulcer Cleansing Wound Cleanser -Foul Odor after Cleansing No #1 RT DORSAL FT -Combined with other wound No No -Current Size (cm) - Length 0.1 0 -Current Size (cm) - Width 0.1 0 -Current Size (cm) - Depth 0.1 0 -Total Square Cm 0.01 0 -Photo Taken Yes -Epithelialization Large 67-100% -Tunneling No -Undermining/Tunneling No -Circular Undermining No -Exudate Amt Large -Exudate Type Serosanguineous -Wound Margin Distinct, Outline Attached -Granulation Amt Medium (34-66%) -Granulation Quality [place] -Slough/Fibrin Yes -Necrosis Amt Medium (34-66%) -Necrotic Tissue Type Adherent Slough -Structure Exposed N/A -Texture (Ana-wound Skin Appearance) Assessed -Moisture (Ana-wound Skin Appearance) Assessed -Color (Ana-wound Skin Appearance) Assessed -Temperature (Ana-wound Skin No Abnormality Appearance) (Pt Warm) -Tenderness on Palpation (Ana-wound No Skin Appearance) -Ulcer Cleansing Wound Cleanser -Foul Odor after Cleansing No #6 LT leg posterior -Combined with other wound No No No -Current Size (cm) - Length 15 0.1 0.1 -Current Size (cm) - Width 19 0.1 0.1 -Current Size (cm) - Depth 0.1 0.1 0.1 -Total Square Cm 285 0.01 0.01 -Photo Taken Yes Yes -Tunneling No No No -Undermining/Tunneling No No No -Circular Undermining No No No -Exudate Amt Large Large Small -Exudate Type Serosanguineous Serosanguineous Serosanguineous -Wound Margin Distinct, Distinct, Distinct, Outline Outline Outline Attached Attached Attached -Granulation Amt Large (67-100%) Large (67-100%) Large (67-100%) -Granulation Quality [place],Red [place]Red [place] -Slough/Fibrin Yes Yes Yes -Necrosis Amt Small (1-33%) Small (1-33%) Small (1-33%) -Necrotic Tissue Type Adherent Slough Adherent Slough Adherent Slough -Structure Exposed N/A N/A N/A -Texture (Ana-wound Skin Appearance) Assessed Assessed Assessed -Moisture (Ana-wound Skin Appearance) Assessed, Weeping,Dry/ Dry/Scaly Maceration Scaly -Color (Ana-wound Skin Appearance) Assessed Assessed Assessed -Temperature (Ana-wound Skin No Abnormality No Abnormality No Abnormality Appearance) (Pt Warm) (Pt Warm) (Pt Warm) -Tenderness on Palpation (Ana-wound No No No Skin Appearance) -Ulcer Cleansing Wound Cleanser Wound Cleanser Wound Cleanser -Foul Odor after Cleansing No No No -Anesthetic Used 5% Lidocaine 5% Lidocaine Gel Gel #5 LT DORSAL FT -Combined with other wound No No No -Current Size (cm) - Length 0.1 10 2 -Current Size (cm) - Width 0.1 12 5.5 -Current Size (cm) - Depth 0.1 0.1 0.1 -Total Square Cm 0.01 120 11.0 -Photo Taken Yes Yes -Tunneling No No No -Undermining/Tunneling No No No -Circular Undermining No No No -Exudate Amt Large Large Large -Exudate Type Yellow/Green Serosanguineous Serosanguineous -Wound Margin Distinct, Distinct, Distinct, Outline Outline Outline Attached Attached Attached -Granulation Amt Large (67-100%) Large (67-100%) Large (67-100%) -Granulation Quality [place],Red [place],Red [place] -Slough/Fibrin Yes Yes Yes -Necrosis Amt Medium (34-66%) Medium (34-66%) Small (1-33%) -Necrotic Tissue Type Adherent Slough Adherent Slough Adherent Slough -Structure Exposed N/A N/A N/A -Texture (Ana-wound Skin Appearance) Assessed Assessed Assessed -Moisture (Ana-wound Skin Appearance) Maceration Weeping,Dry/ Assessed Scaly -Color (Ana-wound Skin Appearance) Assessed Erythema Assessed, Erythema -Temperature (Ana-wound Skin No Abnormality No Abnormality No Abnormality Appearance) (Pt Warm) (Pt Warm) (Pt Warm) -Tenderness on Palpation (Ana-wound No No No Skin Appearance) -Ulcer Cleansing Wound Cleanser Wound Cleanser Wound Cleanser -Foul Odor after Cleansing Yes No No -Anesthetic Used 5% Lidocaine 5% Lidocaine Gel Gel Lower Limb Edema Present Yes Yes Yes Right Calf (cm) 33 32.5 34.2 Right Ankle (cm) 22 22.7 22.5 Left Calf (cm) 34 32.5 38.7 Left Ankle (cm) 23 22.5 22 WC - Nurse 2 - General Ulcer CM Notes Start: 05/12/24 09:55 Freq: Status: Active Protocol: Activity Type Activity Date Activity User E-sign Co-sign Detail Recorded Client Recorded Date Recorded By Document 05/12/24 10:19 ESTHER [id number] 05/12/24 10:20 JF Document 05/26/24 10:07 ESTHER [id number] 05/26/24 10:08 ESTHER 05/12/24 05/26/24 10:19 10:07 Wound Center Nurse 2 #3 RT POST LE -Correct Patient No -Correct Side, Site, Position No -Correct Procedure No -Procedure Performed No -Wound/Ulcer Outcome Not Healed -Treatment Response Procedure Tolerated Well #1 RT DORSAL FT -Correct Patient No -Correct Side, Site, Position No -Correct Procedure No -Procedure Performed No -Wound/Ulcer Outcome Not Healed #6 LT leg posterior -Correct Patient No No -Correct Side, Site, Position No No -Correct Procedure No No -Procedure Performed No No -Wound/Ulcer Outcome Not Healed Not Healed #5 LT DORSAL FT -Correct Patient No No -Correct Side, Site, Position No No -Correct Procedure No No -Procedure Performed No No -Wound/Ulcer Outcome Not Healed Not Healed Pain Scale: 0-10 Numeric Is Patient Pain Free? Yes Yes - Nurse 3 - General Ulcer D/C NN Start: 05/12/24 09:55 Freq: Status: Active Protocol: Activity Type Activity Date Activity User E-sign Co-sign Detail Recorded Client Recorded Date Recorded By Document 05/12/24 10:52 RB [id number] 05/12/24 10:54 RB 05/12/24 10:52 Wound Care Center Nurse 3 #6 LT leg posterior -Ulcer Cleansing Wound Cleanser -Primary Dressing Applied Optilok 8x12, [place] -Optilok 8x12 1 -[place] 2 #5 LT DORSAL FT -Ulcer Cleansing Wound Cleanser -Primary Dressing Applied Optilok 6.5x10, [place] -Optilok 6.5x10 1 -[place] 1 Right -Tubular Bandage Double Layer -Size of Tubigrip Used Size D -Size D ($) 2 Left -Multi-Layered Wrap Application Multi-Layer Comp - Left ($) Treatment Response Procedure Tolerated Well Pain Scale: 0-10 Numeric Is Patient Pain Free? Yes WC - Visit Discharge Discharge Condition Stable Ambulatory Status Ambulatory,Cane Transportation Private Auto Medication Reconcilliation completed & No provided to patient/care provider Clinical Summary of Care Provided Yes Assessment/Plan Assessment/Plan (1) Cellulitis of left lower limb: CODE(S): L03.116 - Cellulitis of left lower limb PLAN: Exam performed. improved wound/cellulitis to left dorsal foot C+S reviewed - demonstrates resistant pseuodomonas aeruginosa cellulitis resolved - will hold off ID consult unless there is recurrence Rx for Augmentin and ciprofloxacin - finish out course No debridement performed today. Plan for daily Betadine gauze to the interspaces dorsal left foot ulceration will be dressed with silver alginate dry sterile dressing and overlying double Tubigrip dressing. Recommend continue elevation left lower extremity. Patient is awaiting vascular evaluation in 1 month. Follow-up weekly. (2) Non-pressure chronic ulcer of other part of right foot with fat layer exposed: CODE(S): L97.512 - Non-pressure chronic ulcer of other part of right foot with fat layer exposed (3) Non-pressure chronic ulcer of other part of left foot with fat layer exposed: CODE(S): L97.522 - Non-pressure chronic ulcer of other part of left foot with fat layer exposed (4) Non-pressure chronic ulcer of left calf with fat layer exposed: CODE(S): L97.222 - Non-pressure chronic ulcer of left calf with fat layer exposed
[2024-06-02 09:52] VITALS: BP 159/54; PULSE 62; RESP 18; TEMP 36.7; BMI 25.1
--- NOTE | 2024-06-02 10:49 | PCM.WC.PN ---
History of Present Illness Date of Service: 06/02/24 Progress of Wound: Patient presents follow-up bilateral leg wounds. Patient notes significant improvement. Denies any chest pain calf pain shortness of breath. Patient compliant with treatment. We are having issues with requiring home health care. Objective Data Objective Data Vital Signs: Vital Signs Temp Pulse Resp BP O2 Del Method 98.0 F 62 18 159/54 H Room Air 06/02/24 09:52 06/02/24 09:52 06/02/24 09:52 06/02/24 09:52 06/02/24 09:52 Oxygen Delivery Method Room Air Weight: 71.668 kg Body Mass Index (BMI) 25.1 Lab / Micro Data Micro: Microbiology 05/21/24 10:40 Wound - Left Foot Gram Stain - Final 05/21/24 10:40 Wound - Left Foot Wound Culture - Final Pseudomonas aeruginosa 05/21/24 10:40 Wound - Left Foot Anaerobic Culture - Final No anaerobic bacteria isolated. Physical Exam Narrative Vascular: Dorsalis pedis posterior tibial pulses palpable 2 out of 4 to bilateral lower extremity. Atrophic skin changes noted bilaterally. +1 pitting edema right lower extremity. +2 pitting edema left lower extremity. Focal increase in warmth and erythema noted to left lower extremity diffusely. Neurologic: Light touch protective sensation intact bilateral feet. No evidence of clonus or Babinski sign today. Dermatologic: Healed wounds right foot and leg. Left leg wounds healed. Dorsal left foot ulceration noted full-thickness with moderate serous draining and drainage, malodor, maceration extending into the interdigital spaces - noted to be improved today. Musculoskeletal: No pain with calf squeeze bilaterally. Muscular strength full to bilateral lower extremity compartment. No gross musculoskeletal deformity causing wound formation. Debridement Note Debridement Note Post-Debridement Measurements and Additional Note: Post-Debridement Measurements/Treatment BC - Nurse 1 - General Ulcer Assessment Start: 05/12/24 09:55 Freq: Status: Active Protocol: DOMINGA Activity Type Activity Date Activity User E-sign Co-sign Detail Recorded Client Recorded Date Recorded By Document 05/12/24 09:55 RB [id number] 05/12/24 10:21 RB Document 05/21/24 10:08 RB [id number] 05/21/24 10:33 RB Document 05/26/24 09:44 KW [id number] 10/15/24 09:58 KW Document 06/02/24 09:52 [id number] 06/02/24 10:08 KW 05/12/24 05/21/24 05/26/24 09:55 10:08 09:44 - Today's Visit Information Type of service Follow-up Visit Follow-up Visit Follow-up Visit (Physician/STAFF DEVELOPMENT COORDINATOR (Physician/STAFF DEVELOPMENT COORDINATOR (Physician/STAFF DEVELOPMENT COORDINATOR ) ) ) Arrival Mode Ambulatory,Cane Ambulatory,Cane Ambulatory,Cane Transfer Assistance Manual None Accompanied by caregiver Patient Identification Verified (Name & Yes Yes Yes ) Patient Requires Transmission-Based No No Precautions Height and Weight Body Mass Index (BMI) 25.1 25.1 25.1 BMI Classification Overweight Overweight Overweight Vital Signs Temperature (97.8 F-99.1 F) 97.3 F L 97 F L 97.6 F L Temperature Source Temporal Temporal Temporal Pulse Rate (60-100) 60 74 63 Pulse Location Monitor Monitor Monitor Respiratory Rate (12-18) 18 18 18 Respiratory rate source Observation Observation Observation Oxygen Delivery Method Room Air Blood Pressure (90/60-120/80) 145/77 H 149/77 H 173/59 H Blood Pressure Mean (mm Hg) 99 101 97 Source Monitor Monitor Monitor Position Semi-Fowlers Semi-Fowlers Semi-Fowlers Blood Pressure Location Left Arm Left Arm Left Forearm History Since Last Visit- (Skip if this is Patient's initial visit) Have you changed medications since your Yes No No last visit? Any new allergies or adverse reactions No No No Had a fall/change in ADL's that may No No No increase risk of falls Signs or symptoms of abuse and/or No No No neglect since last visit Have you been in the hospital since your No No No last visit? Has dressing in place as prescribed Yes Yes Yes Has compression in place as prescribed Yes Yes Yes Has offloadiing in place as prescribed No No N/A Experienced any changes in pain level or No No No management Left Footwear Slipper Right Footwear Slipper Pain Scale: 0-10 Numeric Is Patient Pain Free? Yes Yes Yes 06/02/24 09:52 - Today's Visit Information Type of service Follow-up Visit (Physician/STAFF DEVELOPMENT COORDINATOR ) Arrival Mode Transfer Assistance Accompanied by Patient Identification Verified (Name & Yes ) Patient Requires Transmission-Based Precautions Height and Weight Body Mass Index (BMI) 25.1 BMI Classification Overweight Vital Signs Temperature (97.8 F-99.1 F) 98.0 F Temperature Source Temporal Pulse Rate (60-100) 62 Pulse Location Monitor Respiratory Rate (12-18) 18 Respiratory rate source Observation Oxygen Delivery Method Room Air Blood Pressure (90/60-120/80) 159/54 H Blood Pressure Mean (mm Hg) 89 Source Monitor Position Semi-Fowlers Blood Pressure Location Left Arm History Since Last Visit- (Skip if this is Patient's initial visit) Have you changed medications since your No last visit? Any new allergies or adverse reactions No Had a fall/change in ADL's that may No increase risk of falls Signs or symptoms of abuse and/or No neglect since last visit Have you been in the hospital since your No last visit? Has dressing in place as prescribed Yes Has compression in place as prescribed Yes Has offloadiing in place as prescribed N/A Experienced any changes in pain level or No management Left Footwear Regular Shoe Right Footwear Regular Shoe Pain Scale: 0-10 Numeric Is Patient Pain Free? Yes WC - Nurse 1 - General Ulcer Measurement Start: 05/12/24 09:55 Freq: Status: Active Protocol: Activity Type Activity Date Activity User E-sign Co-sign Detail Recorded Client Recorded Date Recorded By Document 05/12/24 09:55 RB [id number] 05/12/24 10:21 RB Document 05/21/24 10:08 RB [id number] 05/21/24 10:33 RB Document 05/26/24 09:44 KW [id number] 05/26/24 09:58 KW Document 06/02/24 09:52 KW [id number] 06/02/24 10:08 KW 05/12/24 05/21/24 05/26/24 09:55 10:08 09:44 Wound Center Nurse 1 #6 LT leg posterior -Combined with other wound No No No -Current Size (cm) - Length 15 0.1 0.1 -Current Size (cm) - Width 19 0.1 0.1 -Current Size (cm) - Depth 0.1 0.1 0.1 -Total Square Cm 285 0.01 0.01 -Date of Last Picture (Recall this field) -Photo Taken Yes Yes -Tunneling No No No -Undermining/Tunneling No No No -Circular Undermining No No No -Exudate Amt Large Large Small -Exudate Type Serosanguineous Serosanguineous Serosanguineous -Wound Margin Distinct, Distinct, Distinct, Outline Outline Outline Attached Attached Attached -Granulation Amt Large (67-100%) Large (67-100%) Large (67-100%) -Granulation Quality [place]der,Red [place]aelder,Red [place]aelder -Slough/Fibrin Yes Yes Yes -Necrosis Amt Small (1-33%) Small (1-33%) Small (1-33%) -Necrotic Tissue Type Adherent Slough Adherent Slough Adherent Slough -Structure Exposed N/A N/A N/A -Texture (Ana-wound Skin Appearance) Assessed Assessed Assessed -Moisture (Ana-wound Skin Appearance) Assessed, Weeping,Dry/ Dry/Scaly Maceration Scaly -Color (Ana-wound Skin Appearance) Assessed Assessed Assessed -Temperature (Ana-wound Skin No Abnormality No Abnormality No Abnormality Appearance) (Pt Warm) (Pt Warm) (Pt Warm) -Tenderness on Palpation (Ana-wound No No No Skin Appearance) -Ulcer Cleansing Wound Cleanser Wound Cleanser Wound Cleanser -Foul Odor after Cleansing No No No -Anesthetic Used 5% Lidocaine 5% Lidocaine Gel Gel #3 RT POST LE -Combined with other wound No No -Current Size (cm) - Length 0.1 0 -Current Size (cm) - Width 0.1 0 -Current Size (cm) - Depth 0.1 0 -Total Square Cm 0.01 0 -Photo Taken Yes Yes -Epithelialization Large 67-100% -Tunneling No -Undermining/Tunneling No -Circular Undermining No -Exudate Amt Large -Exudate Type Serosanguineous -Wound Margin Distinct, Outline Attached -Granulation Amt Medium (34-66%) -Granulation Quality [place] -Slough/Fibrin Yes -Necrosis Amt Medium (34-66%) -Necrotic Tissue Type Adherent Slough -Structure Exposed N/A -Texture (Ana-wound Skin Appearance) Assessed -Moisture (Ana-wound Skin Appearance) Assessed -Color (Ana-wound Skin Appearance) Assessed -Temperature (Ana-wound Skin No Abnormality Appearance) (Pt Warm) -Tenderness on Palpation (Ana-wound No Skin Appearance) -Ulcer Cleansing Wound Cleanser -Foul Odor after Cleansing No #1 RT DORSAL FT -Combined with other wound No No -Current Size (cm) - Length 0.1 0 -Current Size (cm) - Width 0.1 0 -Current Size (cm) - Depth 0.1 0 -Total Square Cm 0.01 0 -Photo Taken Yes -Epithelialization Large 67-100% -Tunneling No -Undermining/Tunneling No -Circular Undermining No -Exudate Amt Large -Exudate Type Serosanguineous -Wound Margin Distinct, Outline Attached -Granulation Amt Medium (34-66%) -Granulation Quality [place] -Slough/Fibrin Yes -Necrosis Amt Medium (34-66%) -Necrotic Tissue Type Adherent Slough -Structure Exposed N/A -Texture (Ana-wound Skin Appearance) Assessed -Moisture (Ana-wound Skin Appearance) Assessed -Color (Ana-wound Skin Appearance) Assessed -Temperature (Ana-wound Skin No Abnormality Appearance) (Pt Warm) -Tenderness on Palpation (Ana-wound No Skin Appearance) -Ulcer Cleansing Wound Cleanser -Foul Odor after Cleansing No #5 LT DORSAL FT -Combined with other wound No No No -Current Size (cm) - Length 0.1 10 2 -Current Size (cm) - Width 0.1 12 5.5 -Current Size (cm) - Depth 0.1 0.1 0.1 -Total Square Cm 0.01 120 11.0 -Date of Last Picture (Recall this field) -Photo Taken Yes Yes -Tunneling No No No -Undermining/Tunneling No No No -Circular Undermining No No No -Exudate Amt Large Large Large -Exudate Type Yellow/Green Serosanguineous Serosanguineous -Wound Margin Distinct, Distinct, Distinct, Outline Outline Outline Attached Attached Attached -Granulation Amt Large (67-100%) Large (67-100%) Large (67-100%) -Granulation Quality [place]der,Red [place]der,Red [place]der -Slough/Fibrin Yes Yes Yes -Necrosis Amt Medium (34-66%) Medium (34-66%) Small (1-33%) -Necrotic Tissue Type Adherent Slough Adherent Slough Adherent Slough -Structure Exposed N/A N/A N/A -Texture (Ana-wound Skin Appearance) Assessed Assessed Assessed -Moisture (Ana-wound Skin Appearance) Maceration Weeping,Dry/ Assessed Scaly -Color (Ana-wound Skin Appearance) Assessed Erythema Assessed, Erythema -Temperature (Ana-wound Skin No Abnormality No Abnormality No Abnormality Appearance) (Pt Warm) (Pt Warm) (Pt Warm) -Tenderness on Palpation (Ana-wound No No No Skin Appearance) -Ulcer Cleansing Wound Cleanser Wound Cleanser Wound Cleanser -Foul Odor after Cleansing Yes No No -Anesthetic Used 5% Lidocaine 5% Lidocaine Gel Gel Lower Limb Edema Present Yes Yes Yes Right Calf (cm) 33 32.5 34.2 Right Ankle (cm) 22 22.7 22.5 Left Calf (cm) 34 32.5 38.7 Left Ankle (cm) 23 22.5 22 06/02/24 09:52 Wound Center Nurse 1 #6 LT leg posterior -Combined with other wound -Current Size (cm) - Length 0.1 -Current Size (cm) - Width 0.1 -Current Size (cm) - Depth 0.1 -Total Square Cm 0.01 -Date of Last Picture (Recall this 06/02/24 field) -Photo Taken -Tunneling -Undermining/Tunneling -Circular Undermining -Exudate Amt None Present -Exudate Type -Wound Margin -Granulation Amt -Granulation Quality -Slough/Fibrin -Necrosis Amt -Necrotic Tissue Type -Structure Exposed -Texture (Ana-wound Skin Appearance) Assessed -Moisture (Ana-wound Skin Appearance) Assessed -Color (Ana-wound Skin Appearance) Assessed -Temperature (Ana-wound Skin No Abnormality Appearance) (Pt Warm) -Tenderness on Palpation (Ana-wound No Skin Appearance) -Ulcer Cleansing Soap and Water -Foul Odor after Cleansing No -Anesthetic Used #3 RT POST LE -Combined with other wound -Current Size (cm) - Length -Current Size (cm) - Width -Current Size (cm) - Depth -Total Square Cm -Photo Taken -Epithelialization -Tunneling -Undermining/Tunneling -Circular Undermining -Exudate Amt -Exudate Type -Wound Margin -Granulation Amt -Granulation Quality -Slough/Fibrin -Necrosis Amt -Necrotic Tissue Type -Structure Exposed -Texture (Ana-wound Skin Appearance) -Moisture (Ana-wound Skin Appearance) -Color (Ana-wound Skin Appearance) -Temperature (Ana-wound Skin Appearance) -Tenderness on Palpation (Ana-wound Skin Appearance) -Ulcer Cleansing -Foul Odor after Cleansing #1 RT DORSAL FT -Combined with other wound -Current Size (cm) - Length -Current Size (cm) - Width -Current Size (cm) - Depth -Total Square Cm -Photo Taken -Epithelialization -Tunneling -Undermining/Tunneling -Circular Undermining -Exudate Amt -Exudate Type -Wound Margin -Granulation Amt -Granulation Quality -Slough/Fibrin -Necrosis Amt -Necrotic Tissue Type -Structure Exposed -Texture (Ana-wound Skin Appearance) -Moisture (Ana-wound Skin Appearance) -Color (Ana-wound Skin Appearance) -Temperature (Ana-wound Skin Appearance) -Tenderness on Palpation (Ana-wound Skin Appearance) -Ulcer Cleansing -Foul Odor after Cleansing #5 LT DORSAL FT -Combined with other wound -Current Size (cm) - Length 0.1 -Current Size (cm) - Width 0.1 -Current Size (cm) - Depth 0.1 -Total Square Cm 0.01 -Date of Last Picture (Recall this 06/02/24 field) -Photo Taken -Tunneling -Undermining/Tunneling -Circular Undermining -Exudate Amt None Present -Exudate Type -Wound Margin -Granulation Amt -Granulation Quality -Slough/Fibrin -Necrosis Amt -Necrotic Tissue Type -Structure Exposed -Texture (Ana-wound Skin Appearance) -Moisture (Ana-wound Skin Appearance) Dry/Scaly -Color (Ana-wound Skin Appearance) Assessed -Temperature (Ana-wound Skin Appearance) -Tenderness on Palpation (Ana-wound Skin Appearance) -Ulcer Cleansing Soap and Water -Foul Odor after Cleansing No -Anesthetic Used Lower Limb Edema Present Right Calf (cm) 33 Right Ankle (cm) 22.5 Left Calf (cm) 35 Left Ankle (cm) 25.5 WC - Nurse 2 - General Ulcer CM Notes Start: 05/12/24 09:55 Freq: Status: Active Protocol: Activity Type Activity Date Activity User E-sign Co-sign Detail Recorded Client Recorded Date Recorded By Document 05/12/24 10:19 ESTHER [id number] 05/12/24 10:20 ESTHER Document 05/26/24 10:07 ESTHER [id number] 05/26/24 10:08 JF Document 06/02/24 10:37 ESTHER [id number] 06/02/24 10:38 JF 05/12/24 05/26/24 06/02/24 10:19 10:07 10:37 Wound Center Nurse 2 #6 LT leg posterior -Correct Patient No No No -Correct Side, Site, Position No No No -Correct Procedure No No No -Procedure Performed No No No -Post Debridement (cm) - Length 0 -Post Debridement (cm) - Width 0 -Post Debridement (cm) - Depth 0 -Total Square (Post) (cm) 0 -Area of Debridement (cm) - Length 0 -Area of Debridement (cm) - Width 0 -Total Square (Area) (cm) 0 -Wound/Ulcer Outcome Not Healed Not Healed Healed- Epithelialized #3 RT POST LE -Correct Patient No -Correct Side, Site, Position No -Correct Procedure No -Procedure Performed No -Wound/Ulcer Outcome Not Healed -Treatment Response Procedure Tolerated Well #1 RT DORSAL FT -Correct Patient No -Correct Side, Site, Position No -Correct Procedure No -Procedure Performed No -Wound/Ulcer Outcome Not Healed #5 LT DORSAL FT -Correct Patient No No No -Correct Side, Site, Position No No No -Correct Procedure No No No -Procedure Performed No No No -Post Debridement (cm) - Length 0.1 -Post Debridement (cm) - Width 0.1 -Post Debridement (cm) - Depth 0.1 -Total Square (Post) (cm) 0.01 -Area of Debridement (cm) - Length 0.1 -Area of Debridement (cm) - Width 0.1 -Total Square (Area) (cm) 0.01 -Wound/Ulcer Outcome Not Healed Not Healed Not Healed Pain Scale: 0-10 Numeric Is Patient Pain Free? Yes Yes Yes WC - Nurse 3 - General Ulcer D/C NN Start: 05/12/24 09:55 Freq: Status: Active Protocol: Activity Type Activity Date Activity User E-sign Co-sign Detail Recorded Client Recorded Date Recorded By Document 05/12/24 10:52 RB [id number] 05/12/24 10:54 RB Document 05/26/24 10:24 KW [id number] 05/26/24 10:27 KW 05/12/24 05/26/24 10:52 10:24 Wound Care Center Nurse 3 #6 LT leg posterior -Ulcer Cleansing Wound Cleanser -Primary Dressing Applied Optilok 8x12, Silvercel -Primary Dressing Covered/Secured with Dry Gauze -Optilok 8x12 1 -Silvercel 2 #5 LT DORSAL FT -Ulcer Cleansing Wound Cleanser -Primary Dressing Applied Optilok 6.5x10, Silvercel Silvercel -Primary Dressing Covered/Secured with Dry Gauze & Roll Gauze, Secured with Tape -Optilok 6.5x10 1 -Silvercel 1 1 Right -Lotion applied to leg before Yes compression wrap -Tubular Bandage Double Layer Double Layer -Size of Tubigrip Used Size D Size E -Size D ($) 2 -Size E ($) 2 Left -Lotion applied to leg before Yes compression wrap -Multi-Layered Wrap Application Multi-Layer Comp - Left ($) -Tubular Bandage Double Layer -Size of Tubigrip Used Size E -Size E ($) 2 Treatment Response Procedure Tolerated Well Pain Scale: 0-10 Numeric Is Patient Pain Free? Yes Yes WC - Visit Discharge Discharge Condition Stable Stable Ambulatory Status Ambulatory,Cane Ambulatory,Cane Transportation Private Auto Private Auto Medication Reconcilliation completed & No provided to patient/care provider Clinical Summary of Care Provided Yes Assessment/Plan Assessment/Plan (1) Cellulitis of left lower limb: CODE(S): L03.116 - Cellulitis of left lower limb PLAN: Exam performed. resolved wound/cellulitis to left dorsal foot cellulitis resolved - will hold off ID consult unless there is recurrence Rx for Augmentin and ciprofloxacin - finish out course No debridement performed today. Plan for daily Betadine gauze to the interspaces dorsal left foot ulceration will be dressed with silver alginate dry sterile dressing and overlying double Tubigrip dressing. Recommend continue elevation left lower extremity. Patient is awaiting vascular evaluation in 1 month. Follow-up weekly. (2) Non-pressure chronic ulcer of other part of right foot with fat layer exposed: CODE(S): L97.512 - Non-pressure chronic ulcer of other part of right foot with fat layer exposed (3) Non-pressure chronic ulcer of other part of left foot with fat layer exposed: CODE(S): L97.522 - Non-pressure chronic ulcer of other part of left foot with fat layer exposed (4) Non-pressure chronic ulcer of left calf with fat layer exposed: CODE(S): L97.222 - Non-pressure chronic ulcer of left calf with fat layer exposed
[2024-06-09 09:43] VITALS: BP 108/72; PULSE 69; RESP 18; TEMP 36.3; BMI 25.1
--- NOTE | 2024-06-09 11:39 | PN.PCM_ITS ---
History of Present Illness Date of Service: 06/09/24 Progress of Wound: Patient presents follow-up bilateral leg wounds. Patient notes significant improvement. Denies any chest pain calf pain shortness of breath. Patient compliant with treatment. We are having issues with requiring home health care. Objective Data Objective Data Vital Signs: Vital Signs Temp Pulse Resp BP O2 Del Method 97.4 F L 69 18 108/72 Room Air 06/09/24 09:43 06/09/24 09:43 06/09/24 09:43 06/09/24 09:43 06/09/24 09:43 Oxygen Delivery Method Room Air Weight: 71.668 kg Body Mass Index (BMI) 25.1 Lab / Micro Data Micro: Microbiology 05/21/24 10:40 Wound - Left Foot Gram Stain - Final 05/21/24 10:40 Wound - Left Foot Wound Culture - Final Pseudomonas aeruginosa 05/21/24 10:40 Wound - Left Foot Anaerobic Culture - Final No anaerobic bacteria isolated. Physical Exam Narrative Neurovascular status unchanged. All wounds healed at this time. Edema control. Debridement Note Debridement Note Post-Debridement Measurements and Additional Note: Post-Debridement Measurements/Treatment - Nurse 1 - General Ulcer Assessment Start: 05/12/24 09:55 Freq: Status: Active Protocol: DOMINGA Activity Type Activity Date Activity User E-sign Co-sign Detail Recorded Client Recorded Date Recorded By Document 05/12/24 09:55 RB [id number] 05/12/24 10:21 RB Document 05/21/24 10:08 RB [id number] 05/21/24 10:33 RB Document 05/26/24 09:44 KW [id number] 05/26/24 09:58 KW Document 06/02/24 09:52 KW [id number] 06/02/24 10:08 KW Document 06/09/24 09:43 KW [id number] 06/09/24 09:55 KW 05/12/24 05/21/24 05/26/24 09:55 10:08 09:44 - Today's Visit Information Type of service Follow-up Visit Follow-up Visit Follow-up Visit (Physician/GAS LEAK TESTER (Physician/GAS LEAK TESTER (Physician/GAS LEAK TESTER ) ) ) Arrival Mode Ambulatory,Cane Ambulatory,Cane Ambulatory,Cane Transfer Assistance Manual None Accompanied by caregiver Patient Identification Verified (Name & Yes Yes Yes ) Patient Requires Transmission-Based No No Precautions Height and Weight Body Mass Index (BMI) 25.1 25.1 25.1 BMI Classification Overweight Overweight Overweight Vital Signs Temperature (97.8 F-99.1 F) 97.3 F L 97 F L 97.6 F L Temperature Source Temporal Temporal Temporal Pulse Rate (60-100) 60 74 63 Pulse Location Monitor Monitor Monitor Respiratory Rate (12-18) 18 18 18 Respiratory rate source Observation Observation Observation Oxygen Delivery Method Room Air Blood Pressure (90/60-120/80) 145/77 H 149/77 H 173/59 H Blood Pressure Mean (mm Hg) 99 101 97 Source Monitor Monitor Monitor Position Semi-Fowlers Semi-Fowlers Semi-Fowlers Blood Pressure Location Left Arm Left Arm Left Forearm History Since Last Visit- (Skip if this is Patient's initial visit) Have you changed medications since your Yes No No last visit? Any new allergies or adverse reactions No No No Had a fall/change in ADL's that may No No No increase risk of falls Signs or symptoms of abuse and/or No No No neglect since last visit Have you been in the hospital since your No No No last visit? Has dressing in place as prescribed Yes Yes Yes Has compression in place as prescribed Yes Yes Yes Has offloadiing in place as prescribed No No N/A Experienced any changes in pain level or No No No management Left Footwear Slipper Right Footwear Slipper Pain Scale: 0-10 Numeric Is Patient Pain Free? Yes Yes Yes 06/02/24 06/09/24 09:52 09:43 WC - Today's Visit Information Type of service Follow-up Visit Follow-up Visit (Physician/GAS LEAK TESTER (Physician/GAS LEAK TESTER ) ) Arrival Mode Ambulatory,Cane Transfer Assistance Accompanied by healthcare administrative assistant Patient Identification Verified (Name & Yes Yes ) Patient Requires Transmission-Based Precautions Height and Weight Body Mass Index (BMI) 25.1 25.1 BMI Classification Overweight Overweight Vital Signs Temperature (97.8 F-99.1 F) 98.0 F 97.4 F L Temperature Source Temporal Temporal Pulse Rate (60-100) 62 69 Pulse Location Monitor Monitor Respiratory Rate (12-18) 18 18 Respiratory rate source Observation Observation Oxygen Delivery Method Room Air Room Air Blood Pressure (90/60-120/80) 159/54 H 108/72 Blood Pressure Mean (mm Hg) 89 84 Source Monitor Monitor Position Semi-Fowlers Semi-Fowlers Blood Pressure Location Left Arm Left Arm History Since Last Visit- (Skip if this is Patient's initial visit) Have you changed medications since your No No last visit? Any new allergies or adverse reactions No No Had a fall/change in ADL's that may No No increase risk of falls Signs or symptoms of abuse and/or No No neglect since last visit Have you been in the hospital since your No No last visit? Has dressing in place as prescribed Yes Yes Has compression in place as prescribed Yes Yes Has offloadiing in place as prescribed N/A N/A Experienced any changes in pain level or No No management Left Footwear Regular Shoe Regular Shoe Right Footwear Regular Shoe Regular Shoe Pain Scale: 0-10 Numeric Is Patient Pain Free? Yes Yes WC - Nurse 1 - General Ulcer Measurement Start: 05/12/24 09:55 Freq: Status: Active Protocol: Activity Type Activity Date Activity User E-sign Co-sign Detail Recorded Client Recorded Date Recorded By Document 05/12/24 09:55 RB [id number] 05/12/24 10:21 RB Document 05/21/24 10:08 RB [id number] 05/21/24 10:33 RB Document 05/26/24 09:44 KW [id number] 05/26/24 09:58 KW Document 06/02/24 09:52 KW [id number] 06/02/24 10:08 KW Document 06/09/24 09:43 KW [id number] 06/09/24 09:55 KW 05/12/24 05/21/24 05/26/24 09:55 10:08 09:44 Wound Center Nurse 1 #6 LT leg posterior -Combined with other wound No No No -Current Size (cm) - Length 15 0.1 0.1 -Current Size (cm) - Width 19 0.1 0.1 -Current Size (cm) - Depth 0.1 0.1 0.1 -Total Square Cm 285 0.01 0.01 -Date of Last Picture (Recall this field) -Photo Taken Yes Yes -Tunneling No No No -Undermining/Tunneling No No No -Circular Undermining No No No -Exudate Amt Large Large Small -Exudate Type Serosanguineous Serosanguineous Serosanguineous -Wound Margin Distinct, Distinct, Distinct, Outline Outline Outline Attached Attached Attached -Granulation Amt Large (67-100%) Large (67-100%) Large (67-100%) -Granulation Quality [place],Red [place],Red [place] -Slough/Fibrin Yes Yes Yes -Necrosis Amt Small (1-33%) Small (1-33%) Small (1-33%) -Necrotic Tissue Type Adherent Slough Adherent Slough Adherent Slough -Structure Exposed N/A N/A N/A -Texture (Ana-wound Skin Appearance) Assessed Assessed Assessed -Moisture (Ana-wound Skin Appearance) Assessed, Weeping,Dry/ Dry/Scaly Maceration Scaly -Color (Ana-wound Skin Appearance) Assessed Assessed Assessed -Temperature (Ana-wound Skin No Abnormality No Abnormality No Abnormality Appearance) (Pt Warm) (Pt Warm) (Pt Warm) -Tenderness on Palpation (Ana-wound No No No Skin Appearance) -Ulcer Cleansing Wound Cleanser Wound Cleanser Wound Cleanser -Foul Odor after Cleansing No No No -Anesthetic Used 5% Lidocaine 5% Lidocaine Gel Gel #5 LT DORSAL FT -Combined with other wound No No No -Current Size (cm) - Length 0.1 10 2 -Current Size (cm) - Width 0.1 12 5.5 -Current Size (cm) - Depth 0.1 0.1 0.1 -Total Square Cm 0.01 120 11.0 -Date of Last Picture (Recall this field) -Photo Taken Yes Yes -Tunneling No No No -Undermining/Tunneling No No No -Circular Undermining No No No -Exudate Amt Large Large Large -Exudate Type Yellow/Green Serosanguineous Serosanguineous -Wound Margin Distinct, Distinct, Distinct, Outline Outline Outline Attached Attached Attached -Granulation Amt Large (67-100%) Large (67-100%) Large (67-100%) -Granulation Quality [place],Red [place],Red [place] -Slough/Fibrin Yes Yes Yes -Necrosis Amt Medium (34-66%) Medium (34-66%) Small (1-33%) -Necrotic Tissue Type Adherent Slough Adherent Slough Adherent Slough -Structure Exposed N/A N/A N/A -Texture (Ana-wound Skin Appearance) Assessed Assessed Assessed -Moisture (Ana-wound Skin Appearance) Maceration Weeping,Dry/ Assessed Scaly -Color (Ana-wound Skin Appearance) Assessed Erythema Assessed, Erythema -Temperature (Ana-wound Skin No Abnormality No Abnormality No Abnormality Appearance) (Pt Warm) (Pt Warm) (Pt Warm) -Tenderness on Palpation (Ana-wound No No No Skin Appearance) -Ulcer Cleansing Wound Cleanser Wound Cleanser Wound Cleanser -Foul Odor after Cleansing Yes No No -Anesthetic Used 5% Lidocaine 5% Lidocaine Gel Gel #3 RT POST LE -Combined with other wound No No -Current Size (cm) - Length 0.1 0 -Current Size (cm) - Width 0.1 0 -Current Size (cm) - Depth 0.1 0 -Total Square Cm 0.01 0 -Photo Taken Yes Yes -Epithelialization Large 67-100% -Tunneling No -Undermining/Tunneling No -Circular Undermining No -Exudate Amt Large -Exudate Type Serosanguineous -Wound Margin Distinct, Outline Attached -Granulation Amt Medium (34-66%) -Granulation Quality [place] -Slough/Fibrin Yes -Necrosis Amt Medium (34-66%) -Necrotic Tissue Type Adherent Slough -Structure Exposed N/A -Texture (Ana-wound Skin Appearance) Assessed -Moisture (Ana-wound Skin Appearance) Assessed -Color (Ana-wound Skin Appearance) Assessed -Temperature (Ana-wound Skin No Abnormality Appearance) (Pt Warm) -Tenderness on Palpation (Ana-wound No Skin Appearance) -Ulcer Cleansing Wound Cleanser -Foul Odor after Cleansing No #1 RT DORSAL FT -Combined with other wound No No -Current Size (cm) - Length 0.1 0 -Current Size (cm) - Width 0.1 0 -Current Size (cm) - Depth 0.1 0 -Total Square Cm 0.01 0 -Photo Taken Yes -Epithelialization Large 67-100% -Tunneling No -Undermining/Tunneling No -Circular Undermining No -Exudate Amt Large -Exudate Type Serosanguineous -Wound Margin Distinct, Outline Attached -Granulation Amt Medium (34-66%) -Granulation Quality [place] -Slough/Fibrin Yes -Necrosis Amt Medium (34-66%) -Necrotic Tissue Type Adherent Slough -Structure Exposed N/A -Texture (Ana-wound Skin Appearance) Assessed -Moisture (Ana-wound Skin Appearance) Assessed -Color (Ana-wound Skin Appearance) Assessed -Temperature (Ana-wound Skin No Abnormality Appearance) (Pt Warm) -Tenderness on Palpation (Ana-wound No Skin Appearance) -Ulcer Cleansing Wound Cleanser -Foul Odor after Cleansing No Lower Limb Edema Present Yes Yes Yes Right Calf (cm) 33 32.5 34.2 Right Ankle (cm) 22 22.7 22.5 Left Calf (cm) 34 32.5 38.7 Left Ankle (cm) 23 22.5 22 06/02/24 06/09/24 09:52 09:43 Wound Center Nurse 1 #6 LT leg posterior -Combined with other wound -Current Size (cm) - Length 0.1 -Current Size (cm) - Width 0.1 -Current Size (cm) - Depth 0.1 -Total Square Cm 0.01 -Date of Last Picture (Recall this 06/02/24 field) -Photo Taken -Tunneling -Undermining/Tunneling -Circular Undermining -Exudate Amt None Present -Exudate Type -Wound Margin -Granulation Amt -Granulation Quality -Slough/Fibrin -Necrosis Amt -Necrotic Tissue Type -Structure Exposed -Texture (Ana-wound Skin Appearance) Assessed -Moisture (Ana-wound Skin Appearance) Assessed -Color (Ana-wound Skin Appearance) Assessed -Temperature (Ana-wound Skin No Abnormality Appearance) (Pt Warm) -Tenderness on Palpation (Ana-wound No Skin Appearance) -Ulcer Cleansing Soap and Water -Foul Odor after Cleansing No -Anesthetic Used #5 LT DORSAL FT -Combined with other wound -Current Size (cm) - Length 0.1 0.1 -Current Size (cm) - Width 0.1 0.1 -Current Size (cm) - Depth 0.1 0.1 -Total Square Cm 0.01 0.01 -Date of Last Picture (Recall this 06/02/24 06/09/24 field) -Photo Taken -Tunneling -Undermining/Tunneling -Circular Undermining -Exudate Amt None Present -Exudate Type -Wound Margin -Granulation Amt -Granulation Quality -Slough/Fibrin -Necrosis Amt -Necrotic Tissue Type -Structure Exposed -Texture (Ana-wound Skin Appearance) Assessed -Moisture (Ana-wound Skin Appearance) Dry/Scaly Assessed,Dry/ Scaly -Color (Ana-wound Skin Appearance) Assessed Assessed -Temperature (Ana-wound Skin No Abnormality Appearance) (Pt Warm) -Tenderness on Palpation (Ana-wound No Skin Appearance) -Ulcer Cleansing Soap and Water Soap and Water -Foul Odor after Cleansing No -Anesthetic Used #3 RT POST LE -Combined with other wound -Current Size (cm) - Length -Current Size (cm) - Width -Current Size (cm) - Depth -Total Square Cm -Photo Taken -Epithelialization -Tunneling -Undermining/Tunneling -Circular Undermining -Exudate Amt -Exudate Type -Wound Margin -Granulation Amt -Granulation Quality -Slough/Fibrin -Necrosis Amt -Necrotic Tissue Type -Structure Exposed -Texture (Ana-wound Skin Appearance) -Moisture (Ana-wound Skin Appearance) -Color (Ana-wound Skin Appearance) -Temperature (Ana-wound Skin Appearance) -Tenderness on Palpation (Ana-wound Skin Appearance) -Ulcer Cleansing -Foul Odor after Cleansing #1 RT DORSAL FT -Combined with other wound -Current Size (cm) - Length -Current Size (cm) - Width -Current Size (cm) - Depth -Total Square Cm -Photo Taken -Epithelialization -Tunneling -Undermining/Tunneling -Circular Undermining -Exudate Amt -Exudate Type -Wound Margin -Granulation Amt -Granulation Quality -Slough/Fibrin -Necrosis Amt -Necrotic Tissue Type -Structure Exposed -Texture (Ana-wound Skin Appearance) -Moisture (Ana-wound Skin Appearance) -Color (Ana-wound Skin Appearance) -Temperature (Ana-wound Skin Appearance) -Tenderness on Palpation (Ana-wound Skin Appearance) -Ulcer Cleansing -Foul Odor after Cleansing Lower Limb Edema Present Right Calf (cm) 33 34 Right Ankle (cm) 22.5 24.5 Left Calf (cm) 35 37 Left Ankle (cm) 25.5 22.6 WC - Nurse 2 - General Ulcer CM Notes Start: 05/12/24 09:55 Freq: Status: Active Protocol: Activity Type Activity Date Activity User E-sign Co-sign Detail Recorded Client Recorded Date Recorded By Document 05/12/24 10:19 ESTHER [id number] 05/12/24 10:20 ESTHER Document 05/26/24 10:07 JF [id number] 05/26/24 10:08 JF Document 06/02/24 10:37 ESTHER [id number] 06/02/24 10:38 JF Document 06/09/24 10:11 ESTHER [id number] 06/09/24 10:12 JF 05/12/24 05/26/24 06/02/24 10:19 10:07 10:37 Wound Center Nurse 2 #6 LT leg posterior -Correct Patient No No No -Correct Side, Site, Position No No No -Correct Procedure No No No -Procedure Performed No No No -Post Debridement (cm) - Length 0 -Post Debridement (cm) - Width 0 -Post Debridement (cm) - Depth 0 -Total Square (Post) (cm) 0 -Area of Debridement (cm) - Length 0 -Area of Debridement (cm) - Width 0 -Total Square (Area) (cm) 0 -Wound/Ulcer Outcome Not Healed Not Healed Healed- Epithelialized #5 LT DORSAL FT -Correct Patient No No No -Correct Side, Site, Position No No No -Correct Procedure No No No -Procedure Performed No No No -Post Debridement (cm) - Length 0.1 -Post Debridement (cm) - Width 0.1 -Post Debridement (cm) - Depth 0.1 -Total Square (Post) (cm) 0.01 -Area of Debridement (cm) - Length 0.1 -Area of Debridement (cm) - Width 0.1 -Total Square (Area) (cm) 0.01 -Wound/Ulcer Outcome Not Healed Not Healed Not Healed #3 RT POST LE -Correct Patient No -Correct Side, Site, Position No -Correct Procedure No -Procedure Performed No -Wound/Ulcer Outcome Not Healed -Treatment Response Procedure Tolerated Well #1 RT DORSAL FT -Correct Patient No -Correct Side, Site, Position No -Correct Procedure No -Procedure Performed No -Wound/Ulcer Outcome Not Healed Pain Scale: 0-10 Numeric Is Patient Pain Free? Yes Yes Yes 06/09/24 10:11 Wound Center Nurse 2 #6 LT leg posterior -Correct Patient -Correct Side, Site, Position -Correct Procedure -Procedure Performed -Post Debridement (cm) - Length -Post Debridement (cm) - Width -Post Debridement (cm) - Depth -Total Square (Post) (cm) -Area of Debridement (cm) - Length -Area of Debridement (cm) - Width -Total Square (Area) (cm) -Wound/Ulcer Outcome #5 LT DORSAL FT -Correct Patient No -Correct Side, Site, Position No -Correct Procedure No -Procedure Performed No -Post Debridement (cm) - Length 0 -Post Debridement (cm) - Width 0 -Post Debridement (cm) - Depth 0 -Total Square (Post) (cm) 0 -Area of Debridement (cm) - Length 0 -Area of Debridement (cm) - Width 0 -Total Square (Area) (cm) 0 -Wound/Ulcer Outcome Healed- Epithelialized #3 RT POST LE -Correct Patient -Correct Side, Site, Position -Correct Procedure -Procedure Performed -Wound/Ulcer Outcome -Treatment Response #1 RT DORSAL FT -Correct Patient -Correct Side, Site, Position -Correct Procedure -Procedure Performed -Wound/Ulcer Outcome Pain Scale: 0-10 Numeric Is Patient Pain Free? Yes WC - Nurse 3 - General Ulcer D/C NN Start: 05/12/24 09:55 Freq: Status: Active Protocol: Activity Type Activity Date Activity User E-sign Co-sign Detail Recorded Client Recorded Date Recorded By Document 05/12/24 10:52 RB [id number] 05/12/24 10:54 RB Document 05/26/24 10:24 KW [id number] 05/26/24 10:27 KW Document 06/02/24 12:31 JF [id number] 06/02/24 12:32 JF Document 06/09/24 10:29 RB [id number] 06/09/24 10:29 RB 05/12/24 05/26/24 06/02/24 10:52 10:24 12:31 Wound Care Center Nurse 3 #6 LT leg posterior -Ulcer Cleansing Wound Cleanser -Primary Dressing Applied Optilok 8x12, Silvercel -Primary Dressing Covered/Secured with Dry Gauze -Optilok 8x12 1 -Silvercel 2 #5 LT DORSAL FT -Ulcer Cleansing Wound Cleanser Rinsed/ Irrigated with Saline -Foul Odor after Cleansing No -Primary Dressing Applied Optilok 6.5x10, Silvercel NonAdherent Silvercel Contact Layer -Primary Dressing Covered/Secured with Dry Gauze & Dry Gauze & Roll Gauze, Roll Gauze, Secured with Secured with Tape Tape -Other Covering betadine gauze weaved into toes -Optilok 6.5x10 1 -Silvercel 1 1 Right -Lotion applied to leg before Yes compression wrap -Tubular Bandage Double Layer Double Layer -Size of Tubigrip Used Size D Size E -Size D ($) 2 -Size E ($) 2 Left -Lotion applied to leg before Yes compression wrap -Multi-Layered Wrap Application Multi-Layer Comp - Left ($) -Tubular Bandage Double Layer -Size of Tubigrip Used Size E -Size E ($) 2 bilat LE -Tubular Bandage Double Layer -Size of Tubigrip Used Size E -Size E ($) 4 Treatment Response Procedure Tolerated Well Pain Scale: 0-10 Numeric Is Patient Pain Free? Yes Yes Yes WC - Visit Discharge Discharge Condition Stable Stable Stable Ambulatory Status Ambulatory,Cane Ambulatory,Cane Ambulatory Transportation Private Auto Private Auto Private Auto Medication Reconcilliation completed & No Yes provided to patient/care provider Clinical Summary of Care Provided Yes Yes 06/09/24 10:29 Wound Care Center Nurse 3 #6 LT leg posterior -Ulcer Cleansing -Primary Dressing Applied -Primary Dressing Covered/Secured with -Optilok 8x12 -Silvercel #5 LT DORSAL FT -Ulcer Cleansing -Foul Odor after Cleansing -Primary Dressing Applied -Primary Dressing Covered/Secured with -Other Covering -Optilok 6.5x10 -Silvercel Right -Lotion applied to leg before compression wrap -Tubular Bandage -Size of Tubigrip Used -Size D ($) -Size E ($) Left -Lotion applied to leg before compression wrap -Multi-Layered Wrap Application -Tubular Bandage -Size of Tubigrip Used -Size E ($) bilat LE -Tubular Bandage Double Layer -Size of Tubigrip Used Size E -Size E ($) 4 Treatment Response Procedure Tolerated Well Pain Scale: 0-10 Numeric Is Patient Pain Free? Yes WC - Visit Discharge Discharge Condition Stable Ambulatory Status Ambulatory,Cane Transportation Private Auto Medication Reconcilliation completed & No provided to patient/care provider Clinical Summary of Care Provided Yes Assessment/Plan Assessment/Plan (1) Cellulitis of left lower limb: CODE(S): L03.116 - Cellulitis of left lower limb PLAN: Exam performed. Edema resolved. Cellulitis resolved. All wounds healed. Provided prescription for 20 to 30 mmHg compression stockings. Patient to continue compression elevation and exercise for edema management. Follow-up as needed. (2) Non-pressure chronic ulcer of other part of right foot with fat layer exposed: CODE(S): L97.512 - Non-pressure chronic ulcer of other part of right foot with fat layer exposed (3) Non-pressure chronic ulcer of other part of left foot with fat layer exposed: CODE(S): L97.522 - Non-pressure chronic ulcer of other part of left foot with fat layer exposed (4) Non-pressure chronic ulcer of left calf with fat layer exposed: CODE(S): L97.222 - Non-pressure chronic ulcer of left calf with fat layer exposed
--- NOTE | 2024-06-15 11:25 | WC ---
PHOTO 06/09/24 LEFT FOOT
--- NOTE | 2024-06-15 11:27 | WC ---
PHOTO 06/09/24 LEFT LEG
== END 2024-06-09 13:26 | disposition home or self-care (01) ==
LOC: WC 09:45
PROVIDERS: PCP Family Medicine; Referring Provider Family Medicine; Visit Provider Podiatrist
DX: L97.512 Non-pressure chronic ulcer of other part of right foot with fat layer exposed (principal); L97.522 Non-pressure chronic ulcer of other part of left foot with fat layer exposed; L97.222 Non-pressure chronic ulcer of left calf with fat layer exposed; R60.0 Localized edema; L03.116 Cellulitis of left lower limb
CPT/HCPCS: 29581; 87070; 87075; 87077; 87186; 87205; 99213; 99214; G0463